=== PATIENT | female | born 1960 | race American Indian/Alaskan Native ===

== ENCOUNTER 2016-05-22 12:55 | Outpatient (CLI) | payer OTHER ==
--- NOTE | 2016-05-22 15:44 | Mammography Report ---
BILATERAL DIGITAL DIAGNOSTIC MAMMOGRAM: 05/22/16 12:55:00 CLINICAL: For clip placement immediately status post bilateral ultrasound-guided needle breast biopsy. Breast cancer survivor status post bilateral mastectomy with TRAM reconstruction. Bilateral palpable tender masses. COMPARISON:01/05/16 FINDINGS: A biopsy clip is identified within a heavily calcified circumscribed bilobed 4 cm right upper outer breast mass. The mass is not significantly changed compared to the last mammogram. A biopsy clip is identified within a heavily calcified 3 cm left upper outer breast mass that is not significantly changed compared to the last mammogram. The masses have benign mammographic features typical of benign fat necrosis. IMPRESSION: Concordant clip placement status post bilateral needle breast biopsy. BI-RADS CATEGORY: 4A--Mildly Suspicious Pathology pending.
--- NOTE | 2016-05-22 15:46 | Ultrasound Report ---
ULTRASOUND GUIDED NEEDLE CORE BIOPSY LEFT BREAST WITH CLIP PLACEMENT: 05/22/16 CLINICAL: Breast cancer survivor status post bilateral mastectomy with TRAM reconstruction. Bilateral tender enlarging palpable breast masses. COMPARISON :01/05/16 mammogram. FINDINGS: The procedure was explained to the patient and informed consent was obtained. Ultrasound demonstrated a heavily calcified shadowing hypoechoic mass at 3 o'clock 7 cm from the nipple.. I marked the breast with a felt tip marker and a time out was called. The skin was prepped with Betadine and anesthetized with 1% lidocaine. Needle core biopsy was performed through a tiny dermatotomy using ultrasound guidance, 2% lidocaine with epinephrine for deep anesthesia and a 14-gauge Achieve biopsy device. Imaging demonstrated satisfactory sampling. Four cores were obtained and placed in formalin. A clip was deployed within the mass. The patient tolerated the procedure well and there were no apparent complications. Hemostasis was achieved with gentle pressure and a sterile dressing was applied. A two view mammogram demonstrated satisfactory placement of the clip. She left the department in good condition and was given instructions for wound care and followup. IMPRESSION: Uncomplicated ultrasound guided needle core biopsy with clip placement left breast.
--- NOTE | 2016-05-22 15:49 | Ultrasound Report ---
ULTRASOUND GUIDED NEEDLE CORE BIOPSY RIGHT BREAST WITH CLIP PLACEMENT: 05/22/16 CLINICAL: Breast cancer survivor status post bilateral mastectomy with TRAM reconstruction. Bilateral enlarging tender palpable breast masses. COMPARISON :01/04/06 the mammogram. FINDINGS: The procedure was explained to the patient and informed consent was obtained. Ultrasound demonstrated a solid hypoechoic shadowing mass at 9 o'clock 8 cm from the nipple. It correlates with a heavily calcified mammographic mass that was seen previously. I marked the breast with a felt tip marker and a time out was called. The skin was prepped with Betadine and anesthetized with 1% lidocaine. Needle core biopsy was performed through a tiny dermatotomy using ultrasound guidance, 2% lidocaine with epinephrine for deep anesthesia and a 14-gauge Achieve biopsy device. Imaging demonstrated satisfactory sampling. 3 cores were obtained and placed in formalin. A clip was deployed within the mass. The patient tolerated the procedure well and there were no apparent complications. Hemostasis was achieved with gentle pressure and a sterile dressing was applied. A two view mammogram demonstrated satisfactory placement of the clip. She left the department in good condition and was given instructions for wound care and followup. IMPRESSION: Uncomplicated ultrasound guided needle core biopsy with clip placement right breast.
== END 2016-05-22 12:56 | disposition home or self-care (01) ==
LOC: SPVWC 12:55
PROVIDERS: ATTEND Internal Medicine Hematology & Oncology
DX: N63 Unspecified lump in breast (principal); Z90.11 Acquired absence of right breast and nipple; Z90.12 Acquired absence of left breast and nipple; Z85.3 Personal history of malignant neoplasm of breast
CPT/HCPCS: 19083; 88305; A4648; G0204; 77066

== ENCOUNTER 2016-05-30 07:08 | Outpatient (CLI) | payer OTHER ==
--- NOTE | 2016-05-30 14:29 | PET Report ---
PET/CT:05/30/16 07:08:00 CLINICAL: History of right renal cancer and bilateral breast cancer. RADIOPHARMACEUTICAL: 14.6mCi F18-FDG. COMPARISON: 12/05/09 PET/CT TECHNIQUE- Following intravenous injection of F-18 FDG and an approximately 60 minute uptake period, CT and PET images from the mid skull to the upper thighs were acquired with the patient in the fasted state. No contrast was administered. The CT protocol used for this PET CT study is designed for attenuation correction and anatomic localization of PET abnormalities. This armature straightener CT is not desired to produce and cannot replace, upbrc-nr-eie-art diagnostic CT scans with specific imaging protocols for different body parts and indications. Plasma glucose at the time of this test: 113g/dl. The standardized uptake values (SUV) are normalized to patient body weight and indicate the highest activity concentration (SUV max) in a given disease site. FINDINGS: Brain--Physiologic FDG uptake in the visualized regions of the brain. Neck--Benign FDG uptake in brown fat of the neck and supraclavicular regions. An FDG avid right level II jugular chain lymph node measures less than 1 cm in size with SUV 3.8. Chest--Physiologic FDG uptake in mediastinal blood pool and myocardium. Lungs--No abnormal uptake. No pulmonary nodule or mass. Pleura/pericardium--No abnormal uptake. Thoracic nodes--No abnormal uptake. Hepatobiliary--No abnormal uptake. Liver background SUV mean, as a reference for comparing FDG studies, is 2.9 compared to 2.9 on the last exam. No liver mass. Spleen--No abnormal uptake. Pancreas--No abnormal uptake. Adrenal Glands--No abnormal uptake. Kidneys/Ureters/Bladder--No abnormal uptake. Status post right nephrectomy. Abdominopelvic Nodes--No abnormal uptake. Bowel/Peritoneum/Mesentery--No abnormal uptake. Pelvic organs--No abnormal uptake. Bones/Soft Tissues--No abnormal uptake. No bone lesions. Other findings: Status post bilateral mastectomy with TRAM reconstruction. Recently biopsied masses of benign fat necrosis in each breast demonstrate mild FDG uptake with SUV of 3.0 on the right and 3.2 on the left. IMPRESSION- No evidence of disease recurrence or metastasis. A probably benign right jugular chain lymph node. Bilateral benign fat necrosis of the reconstructed breasts.
== END 2016-05-30 07:09 | disposition home or self-care (01) ==
LOC: PET 07:08
PROVIDERS: ATTEND Internal Medicine Hematology & Oncology
DX: C64.1 Malignant neoplasm of right kidney, except renal pelvis (principal); C50.411 Malignant neoplasm of upper-outer quadrant of right female breast; C50.912 Malignant neoplasm of unspecified site of left female breast; D64.9 Anemia, unspecified; N64.1 Fat necrosis of breast; Z90.5 Acquired absence of kidney; Z90.13 Acquired absence of bilateral breasts and nipples
CPT/HCPCS: 78815; 82962; A9552

== ENCOUNTER 2018-09-04 11:03 | Emergency (ER) | payer OTHER ==
[2018-09-04 11:17] VITALS: BP 175/125
--- NOTE | 2018-09-04 12:24 | XRay Report ---
PORTABLE CHEST INDICATION: Chest pain. COMPARISON: 01/02/2014 FINDINGS: Portable, frontal chest radiograph demonstrates grossly stable cardiomediastinal silhouette, clear lungs, mild aortic knob calcifications, few bilateral surgical clips and few bony degenerative changes. CONCLUSION: No acute chest process or significant interval change, as described. Thank you for the opportunity to participate in this patient's care.
[2018-09-04 12:31] LABS: Hematocrit 39.7 % (30.3-42.9); Hemoglobin 12.8 gm/dl (10.1-14.3); Mean Corpuscular HGB Conc 32 % (30-34); Mean Corpuscular Volume 94 fl (79-97); Platelet Count 304 K/mm3 (140-440); Red Blood Count 4.22 M/mm3 (3.65-5.03); Red Cell Distribution Width 14.7 % (13.2-15.2)
[2018-09-04 13:34] LABS: Total Cells Counted 100
[2018-09-04 13:35] LABS: Basophils % (Manual) 0 % (0.0-1.8); Eosinophils % (Manual) 0 % (0.0-4.3); Platelet Estimate Consistent w Auto; RBC Morphology Normal
[2018-09-04] MEDS ORDERED: CATAPRES PO ONE (15:19)
--- NOTE | 2018-09-04 15:19 | Emergency Department Report ---
HPI - General Chief Complaint: Medical Clearance Time Seen by Provider: 09/04/18 11:41 - HPI HPI: 58-year-old -[place] female with history of CHF, history of MS, presents to ED with headache, chest pain, for the past 2 weeks. Patient hasn't taken any medications for her symptoms. She has not taking any of her maintenance medication due to leg of insurance. She has not seen a medical doctor in the past 3 months. Denies any fever, chills or night sweats. Denies any focal weakness. Her chest pain is mid chest, 2 out of 10, sharp without radiation. ED Past Medical Hx - Past Medical History Previous Medical History?: Yes Hx Hypertension: Yes Hx CVA: Yes Hx Congestive Heart Failure: Yes Additional medical history: Bilateral Breast CA, Right Kidney CA, left lung collapsed, broken ribs. MS - Surgical History Past Surgical History?: Yes Additional Surgical History: Bilateral mastectomy with reconstruction, bilateral lymph nodes removed, right kidney removed, cyst to throat removed as a child - Social History Smoking Status: Never Smoker Substance Use Type: None - Medications Home Medications: Home Medications Medication Instructions Recorded Confirmed Last Taken Type Atorvastatin Calcium [Lipitor] 20 mg PO DAILY 01/02/14 01/02/14 Unknown History Furosemide [Lasix] 40 mg PO DAILY 01/02/14 01/02/14 Unknown History HYDROcodone/APAP 10-325 [[place] 1 each PO Q4H PRN #20 tablet 01/03/14 Unknown Rx 10-325 mg TAB] traMADol [Ultram 50 MG tab] 50 mg PO Q6HR PRN #20 tablet 02/27/15 Unknown Rx Aspirin [Aspirin BABY CHEW TAB] 81 mg PO DAILY #30 tab.chew 09/04/18 Unknown Rx Carvedilol [Coreg] 12.5 mg PO DAILY #30 tablet 09/04/18 Unknown Rx Furosemide [Lasix] 40 mg PO DAILY #30 tablet 09/04/18 Unknown Rx Simvastatin (Nf) [Zocor TAB] 20 mg PO DAILY #30 tablet 09/04/18 Unknown Rx hydrALAZINE [Apresoline TAB] 25 mg PO BID #60 tablet 09/04/18 Unknown Rx ED Review of Systems ROS: Stated complaint: MEDICAL CLEARANCE Other details as noted in HPI Comment: All other systems reviewed and negative ENT: denies: ear pain Respiratory: denies: cough, orthopnea Physical Exam - Physical Exam Vital Signs: Vital Signs 09/04/18 11:14 Temperature 97.5 F L Pulse Rate 88 Respiratory 18 Rate Blood Pressure 175/125 O2 Sat by Pulse 100 Oximetry Physical Exam: Physical Exam: - General Limitations: No Limitations General appearance: alert, in no apparent distress. - Head Head exam: Present: atraumatic, normocephalic - Eye Eye exam: Present: normal appearance - ENT ENT exam: Present: mucous membranes moist - Neck Neck exam: Present: normal inspection - Respiratory Respiratory exam: Present: normal lung sounds bilaterally. Absent: respiratory distress - Cardiovascular Cardiovascular Exam: Present: normal rhythm. Absent: systolic murmur, diastolic murmur, rubs, gallop - GI/Abdominal GI/Abdominal exam: Present: soft, normal bowel sounds - Extremities Exam Extremities exam: Present: normal inspection - Back Exam Back exam: Present: normal inspection - Neurological Exam Neurological exam: Present: alert, oriented X3 - Psychiatric Psychiatric exam: normal affect and mood - Skin Skin exam: Present: warm, dry, intact, normal color. Absent: rash ED Course Vital Signs 09/04/18 11:14 Temperature 97.5 F L Pulse Rate 88 Respiratory 18 Rate Blood Pressure 175/125 O2 Sat by Pulse 100 Oximetry ED Medical Decision Making - Lab Data Result diagrams: 09/04/18 12:10 Critical care attestation.: If time is entered above; I have spent that time in minutes in the direct care of this critically ill patient, excluding procedure time. ED Disposition Clinical Impression: Multiple sclerosis CHF (congestive heart failure) Qualifiers: Heart failure type: systolic Heart failure chronicity: chronic Qualified Code(s): I50.22 - Chronic systolic (congestive) heart failure Disposition: DC-01 TO HOME OR SELFCARE Is pt being admited?: No Does the pt Need Aspirin: No Condition: Stable Prescriptions: hydrALAZINE [Apresoline TAB] 25 mg PO BID #60 tablet Aspirin [Aspirin BABY CHEW TAB] 81 mg PO DAILY #30 tab.chew Carvedilol [Coreg] 12.5 mg PO DAILY #30 tablet Furosemide [Lasix] 40 mg PO DAILY #30 tablet Simvastatin (Nf) [Zocor TAB] 20 mg PO DAILY #30 tablet Referrals: PRIMARY CARE, [Primary Care Provider] - 3-5 Days
--- NOTE | 2018-09-04 15:26 | Cat Scan Report ---
PROCEDURE: CT HEAD/BRAIN WO CON TECHNIQUE: Spiral CT imaging of the brain was obtained without the use of IV contrast. HISTORY: h/o ms, weakness COMPARISONS: None FINDINGS: There is no evidence of intracranial hemorrhage. No parenchymal hemorrhage, mass lesions or mass effe ct are seen. The ventricles are normal size and are midline. No abnormal extra-axial fluid collection s or masses are identified. There are subtle areas of decreased density seen in the periventricular white matter and more promine nt decreased density seen superior to the posterior horn of the left lateral ventricle also within th e white matter. Given the patient's history of multiple sclerosis these likely represent demyelinatin g plaques. Visualized paranasal sinuses are clear. Mastoid air cells are clear. No evidence of skull fracture. IMPRESSION: No acute intracranial abnormalities are identified. White matter changes are present likely related to the patient's multiple sclerosis and demyelinating plaques. If clinically indicated a follow-up MRI of the brain could be obtained for further characte rization. No intracranial hemorrhage or mass effect are seen.. This document is electronically signed by Bharathi Díaz MD., Sep 04 2018 03:23:47 PM ET
== END 2018-09-04 15:40 | disposition home or self-care (01) ==
LOC: ED 11:03
DX: I11.0 Hypertensive heart disease with heart failure (principal); I50.9 Heart failure, unspecified; G35 Multiple sclerosis; Z86.73 Personal history of transient ischemic attack (TIA), and cerebral infarction without residual deficits; Z79.899 Other long term (current) drug therapy
CPT/HCPCS: 36415; 70450; 71045; 83880; 84484; 85007; 85025; 93005; 93010

== ENCOUNTER 2019-04-04 04:47 | Inpatient (IN) | payer BC, OTHER ==
[2019-04-04] MEDS ORDERED: ASPIRIN 325 MG TAB PO ONE (04:58)
[2019-04-04] MEDS ORDERED: NITROGLYCERIN 2% OINT 1 GM TP ONE (04:58)
[2019-04-04] MEDS ORDERED: FUROSEMIDE 40 MG/4 ML INJ IV ONE (04:59)
--- NOTE | 2019-04-04 05:29 | Emergency Department Report ---
ED Shortness of Breath HPI - General Chief Complaint: Chest Pain Stated Complaint: IOANA Time Seen by Provider: 04/04/19 04:57 Source: patient, EMS Mode of arrival: Ambulatory Limitations: No Limitations - History of Present Illness Initial Comments: Patient is a 58-year-old [place] female with a past medical history of congestive heart failure hypertension has been noncompliant with her medication for several months. Patient is having gradually worsening shortness of breath especially with exertion and with lying flat witches got to the point where the patient states she could not sleep tonight. Patient was very short of breath and was having some chest discomfort. Patient states she has been having occasional chest pain with exertion. She denies fevers chills nausea vomiting diarrhea, cold or congestion. - Related Data Home Medications Medication Instructions Recorded Confirmed Last Taken Atorvastatin Calcium [Lipitor] 20 mg PO DAILY 01/02/14 01/02/14 Unknown Furosemide [Lasix] 40 mg PO DAILY 01/02/14 01/02/14 Unknown Previous Rx's Medication Instructions Recorded Last Taken Type HYDROcodone/APAP 10-325 [[place] 1 each PO Q4H PRN #20 tablet 01/03/14 Unknown Rx 10-325 mg TAB] traMADoL [Ultram 50 MG tab] 50 mg PO Q6HR PRN #20 tablet 02/27/15 Unknown Rx Aspirin [Aspirin BABY CHEW TAB] 81 mg PO DAILY #30 tab.chew 09/04/18 Unknown Rx Furosemide [Lasix] 40 mg PO DAILY #30 tablet 09/04/18 Unknown Rx Simvastatin (Nf) [Zocor TAB] 20 mg PO DAILY #30 tablet 09/04/18 Unknown Rx carvediloL [Coreg] 12.5 mg PO DAILY #30 tablet 09/04/18 Unknown Rx hydrALAZINE [Apresoline TAB] 25 mg PO BID #60 tablet 09/04/18 Unknown Rx Allergies Allergy/AdvReac Type Severity Reaction Status Date / Time No Known Allergies Allergy Verified 01/02/14 21:11 ED Review of Systems ROS: Stated complaint: IOANA Other details as noted in HPI Comment: All other systems reviewed and negative ED Past Medical Hx - Past Medical History Previous Medical History?: Yes Hx Hypertension: Yes Hx CVA: Yes Hx Congestive Heart Failure: Yes Additional medical history: Bilateral Breast CA, Right Kidney CA, left lung collapsed, broken ribs. MS - Surgical History Past Surgical History?: Yes Additional Surgical History: Bilateral mastectomy with reconstruction, bilateral lymph nodes removed, right kidney removed, cyst to throat removed as a child - Social History Smoking Status: Light Tobacco Smoker Substance Use Type: None - Medications Home Medications: Home Medications Medication Instructions Recorded Confirmed Last Taken Type Atorvastatin Calcium [Lipitor] 20 mg PO DAILY 01/02/14 01/02/14 Unknown History Furosemide [Lasix] 40 mg PO DAILY 01/02/14 01/02/14 Unknown History HYDROcodone/APAP 10-325 [[place] 1 each PO Q4H PRN #20 tablet 01/03/14 Unknown Rx 10-325 mg TAB] traMADoL [Ultram 50 MG tab] 50 mg PO Q6HR PRN #20 tablet 02/27/15 Unknown Rx Aspirin [Aspirin BABY CHEW TAB] 81 mg PO DAILY #30 tab.chew 09/04/18 Unknown Rx Furosemide [Lasix] 40 mg PO DAILY #30 tablet 09/04/18 Unknown Rx Simvastatin (Nf) [Zocor TAB] 20 mg PO DAILY #30 tablet 09/04/18 Unknown Rx carvediloL [Coreg] 12.5 mg PO DAILY #30 tablet 09/04/18 Unknown Rx hydrALAZINE [Apresoline TAB] 25 mg PO BID #60 tablet 09/04/18 Unknown Rx ED Physical Exam - General Limitations: No Limitations General appearance: alert, in no apparent distress - Head Head exam: Present: atraumatic, normocephalic - Eye Eye exam: Present: normal appearance, PERRL, EOMI - ENT ENT exam: Present: mucous membranes moist - Neck Neck exam: Present: normal inspection - Respiratory Respiratory exam: Present: respiratory distress, rales. Absent: normal lung sounds bilaterally, wheezes, rhonchi, stridor - Cardiovascular Cardiovascular Exam: Present: regular rate, normal rhythm, normal heart sounds. Absent: systolic murmur, diastolic murmur, rubs, gallop - GI/Abdominal GI/Abdominal exam: Present: soft, normal bowel sounds. Absent: distended, tenderness, guarding, rebound - Extremities Exam Extremities exam: Present: normal inspection - Back Exam Back exam: Present: normal inspection - Neurological Exam Neurological exam: Present: alert, oriented X3 - Psychiatric Psychiatric exam: Present: normal affect, normal mood - Skin Skin exam: Present: warm, dry, intact, normal color. Absent: rash ED Course Vital Signs 04/04/19 04/04/19 04/04/19 04:54 05:04 05:14 Temperature 97.5 F L Pulse Rate 89 89 Respiratory 27 H 26 H Rate Blood Pressure 160/111 158/117 O2 Sat by Pulse 97 97 Oximetry ED Medical Decision Making - Lab Data Result diagrams: 04/04/19 05:11 04/04/19 05:11 Lab Results 04/04/19 04/04/19 04/04/19 Range/Units 05:11 05:11 05:11 WBC 6.3 (4.5-11.0) K/mm3 RBC 4.10 (3.65-5.03) M/mm3 Hgb 12.4 (10.1-14.3) gm/dl Hct 38.5 (30.3-42.9) % MCV 94 (79-97) fl MCH 30 (28-32) pg MCHC 32 (30-34) % RDW 14.3 (13.2-15.2) % Plt Count 298 (140-440) K/mm3 Lymph % (Auto) 27.6 (13.4-35.0) % Kay % (Auto) 6.9 (0.0-7.3) % Eos % (Auto) 0.9 (0.0-4.3) % Baso % (Auto) 1.4 (0.0-1.8) % Lymph # 1.7 (1.2-5.4) K/mm3 Kay # 0.4 (0.0-0.8) K/mm3 Eos # 0.1 (0.0-0.4) K/mm3 Baso # 0.1 (0.0-0.1) K/mm3 Seg Neutrophils % 63.2 (40.0-70.0) % Seg Neutrophils # 4.0 (1.8-7.7) K/mm3 PT 12.7 (12.2-14.9) Sec. INR 0.96 (0.87-1.13) APTT 27.7 (24.2-36.6) Sec. Sodium 143 (137-145) mmol/L Potassium 3.9 (3.6-5.0) mmol/L Chloride 105.7 (98-107) mmol/L Carbon Dioxide 23 (22-30) mmol/L Anion Gap 18 mmol/L BUN 13 (7-17) mg/dL Creatinine 0.9 (0.7-1.2) mg/dL Estimated GFR > 60 ml/min BUN/Creatinine Ratio 14 % Glucose 103 H (65-100) mg/dL Calcium 9.1 (8.4-10.2) mg/dL Troponin T 0.136 H* (0.00-0.029) ng/mL NT-Pro-B Natriuret Pep 15009 H (0-900) pg/mL - EKG Data -: EKG Interpreted by Me EKG shows normal: sinus rhythm, axis, intervals, QRS complexes, ST-T waves Rate: normal - EKG Data Interpretation: [facility] - Radiology Data Radiology results: image reviewed (chest x-ray shows mild cardiomegaly with pulmonary vascular congestion) - Medical Decision Making Patient is a 58-year-old female who has been noncompliant with her medications for her congestive heart failure and hypertension. Patient presenting with increased shortness of breath with exertion as well as ort hopnea. Patient also having some exertional chest discomfort as well. Patient's BNP and troponin are both elevated. Patient started on heparin drip given Lasix. Chest discomfort is improved after nitroglycerin. Patient be admitted to the hospitalist service with cardiology consult. Critical Care Time: Yes (30) Critical care attestation.: If time is entered above; I have spent that time in minutes in the direct care of this critically ill patient, excluding procedure time. ED Disposition Clinical Impression: NSTEMI (non-ST elevated myocardial infarction), Hypertensive emergency Acute congestive heart failure Qualifiers: Heart failure type: unspecified Qualified Code(s): I50.9 - Heart failure, unspecified Disposition: OP ADMIT IP TO THIS HOSP Is pt being admited?: Yes Does the pt Need Aspirin: No Condition: Stable Instructions: Hypertension (ED) Time of Disposition: 06:00
[2019-04-04 05:32] LABS: Basophils # (Auto) 0.1 K/mm3 (0.0-0.1); Basophils % (Auto) 1.4 % (0.0-1.8); Eosinophils # (Auto) 0.1 K/mm3 (0.0-0.4); Eosinophils % (Auto) 0.9 % (0.0-4.3); Hematocrit 38.5 % (30.3-42.9); Hemoglobin 12.4 gm/dl (10.1-14.3); Lymphocytes # (Auto) 1.7 K/mm3 (1.2-5.4); Lymphocytes % (Auto) 27.6 % (13.4-35.0); Mean Corpuscular HGB Conc 32 % (30-34); Mean Corpuscular Volume 94 fl (79-97); Monocytes # (Auto) 0.4 K/mm3 (0.0-0.8); Monocytes % (Auto) 6.9 % (0.0-7.3); Platelet Count 298 K/mm3 (140-440); Red Cell Distribution Width 14.3 % (13.2-15.2)
[2019-04-04 05:42] LABS: INR 0.96 (0.87-1.13)
[2019-04-04 05:43] LABS: Partial Thromboplastin Time 27.7 Sec. (24.2-36.6)
[2019-04-04 05:51] LABS: BUN/Creatinine Ratio 14; Blood Urea Nitrogen 13 mg/dL (7-17); Calcium 9.1 mg/dL (8.4-10.2); Hemolysis Index 17
[2019-04-04] MEDS ORDERED: HEPARIN 10,000 UNITS/10 ML VIAL IV ONE (05:57)
[2019-04-04] MEDS ORDERED: HEPARIN/ 0.45% NACL DRIP 25,000 UNIT/500 ML BAG IV SCH (06:00)
--- NOTE | 2019-04-04 06:02 | XRay Report ---
CHEST 1 VIEW INDICATION / CLINICAL INFORMATION: dyspnea. COMPARISON: None available. FINDINGS: SUPPORT DEVICES: None. HEART / MEDIASTINUM: No significant abnormality. LUNGS / PLEURA: Patchy airspace density within the right lower lung. Signer Name: Matteo Rao MD Signed: 04/04/2019 5:58 AM Workstation Name: [id number]
[2019-04-04 06:08] LABS: Chol/HDL Ratio 2.42 %; HDL Cholesterol 68 mg/dL (40-59); LDL Cholesterol,Direct 95 mg/dL (50-130)
--- NOTE | 2019-04-04 08:01 | History and Physical Report ---
History of Present Illness Date of examination: 04/04/19 Date of admission: 04/04/19 06:59 Chief complaint: Increasing shortness of breath for 2-3 days History of present illness: 58-year-old -[place] female with multiple medical problems including congestive heart failure, hypertension, breast cancer and hyperlipidemia comes in for increasing shortness of breath for last 2-3 days. Unable to lie flat. Getting short of breath on minimal exertion. Patient has class IV NYHA symptoms. Patient has not been taking her medications on a regular basis. Hist ory of noncompliance present. Also some chest discomfort on exertion. No radiation. Past Medical History Previous Medical History?: Yes Hypertension: Yes CVA: Yes Congestive Heart Failure: Yes Additional medical history: Bilateral Breast CA, Right Kidney CA, left lung collapsed, broken ribs. MS Surgical History Past Surgical History?: Yes Additional Surgical History: Bilateral mastectomy with reconstruction, bilateral lymph nodes removed, right kidney removed, cyst to throat removed as a child Social History Smoking Status: Light Tobacco Smoker Substance Use Type: None Family history Htn - Medications Home Medications: Home Medications Medication Instructions Recorded Confirmed Last Taken Type Atorvastatin Calcium [Lipitor] 20 mg PO DAILY 01/02/14 01/02/14 Unknown History Furosemide [Lasix] 40 mg PO DAILY 01/02/14 01/02/14 Unknown History HYDROcodone/APAP 10-325 [[place]cedes 1 each PO Q4H PRN #20 tablet 01/03/14 Unknown Rx 10-325 mg TAB] traMADoL [Ultram 50 MG tab] 50 mg PO Q6HR PRN #20 tablet 02/27/15 Unknown Rx Aspirin [Aspirin BABY CHEW TAB] 81 mg PO DAILY #30 tab.chew 09/04/18 Unknown Rx Furosemide [Lasix] 40 mg PO DAILY #30 tablet 09/04/18 Unknown Rx Simvastatin (Nf) [Zocor TAB] 20 mg PO DAILY #30 tablet 09/04/18 Unknown Rx carvediloL [Coreg] 12.5 mg PO DAILY #30 tablet 09/04/18 Unknown Rx hydrALAZINE [Apresoline TAB] 25 mg PO BID #60 tablet 09/04/18 Unknown Rx Review of Systems ROS: Stated complaint: IOANA Other details as noted in HPI Comment: All other systems reviewed and negative Medications and Allergies Allergies Allergy/AdvReac Type Severity Reaction Status Date / Time No Known Allergies Allergy Verified 01/02/14 21:11 Home Medications Medication Instructions Recorded Confirmed Last Taken Type Atorvastatin Calcium [Lipitor] 20 mg PO DAILY 01/02/14 01/02/14 Unknown History Furosemide [Lasix] 40 mg PO DAILY 01/02/14 01/02/14 Unknown History HYDROcodone/APAP 10-325 [[place]cedes 1 each PO Q4H PRN #20 tablet 01/03/14 Unknown Rx 10-325 mg TAB] traMADoL [Ultram 50 MG tab] 50 mg PO Q6HR PRN #20 tablet 02/27/15 Unknown Rx Aspirin [Aspirin BABY CHEW TAB] 81 mg PO DAILY #30 tab.chew 09/04/18 Unknown Rx Furosemide [Lasix] 40 mg PO DAILY #30 tablet 09/04/18 Unknown Rx Simvastatin (Nf) [Zocor TAB] 20 mg PO DAILY #30 tablet 09/04/18 Unknown Rx carvediloL [Coreg] 12.5 mg PO DAILY #30 tablet 09/04/18 Unknown Rx hydrALAZINE [Apresoline TAB] 25 mg PO BID #60 tablet 09/04/18 Unknown Rx Active Meds: Active Medications Heparin Sodium/Sodium Chloride (Heparin/ 0.45% Nacl-25,000 Unit/500 Ml) 25,000 unit in 500 mls @ 20 mls/hr IV TITRATE ANGELIQUE; Protocol Last Admin: 04/04/19 06:44 Dose: 1,000 units/hr, 20 mls/hr Documented by: Exam - Constitutional Vitals: Temp Pulse Resp BP Pulse Ox 97.5 F L 97 H 32 H 179/132 99 04/04/19 04:54 04/04/19 06:45 04/04/19 06:45 04/04/19 06:45 04/04/19 06:45 General appearance: Present: mild distress, well-nourished - EENT Eyes: Present: PERRL ENT: hearing intact, clear oral mucosa - Neck Neck: Present: supple, normal ROM - Respiratory Respiratory effort: normal Respiratory: bilateral: CTA - Cardiovascular Heart rate: 90 Rhythm: regular Heart Sounds: Present: S1 & S2. Absent: rub, click - Extremities Extremities: no ischemia, pulses symmetrical, No edema Peripheral Pulses: within normal limits - Abdominal General gastrointestinal: Present: soft, non-tender, non-distended, normal bowel sounds Female genitourinary: Present: normal - Integumentary Integumentary: Present: clear, warm, dry - Musculoskeletal Musculoskeletal: gait normal, strength equal bilaterally - Psychiatric Psychiatric: appropriate mood/affect, intact judgment & insight - Neurologic Neurologic: CNII-XII intact, moves all extremities - Allied Health Allied health notes reviewed: nursing, case management Results - Labs CBC & Chem 7: 04/04/19 05:11 04/04/19 05:11 Labs: Laboratory Last Values WBC 6.3 K/mm3 (4.5-11.0) 04/04/19 05:11 RBC 4.10 M/mm3 (3.65-5.03) 04/04/19 05:11 Hgb 12.4 gm/dl (10.1-14.3) 04/04/19 05:11 Hct 38.5 % (30.3-42.9) 04/04/19 05:11 MCV 94 fl (79-97) 04/04/19 05:11 MCH 30 pg (28-32) 04/04/19 05:11 MCHC 32 % (30-34) 04/04/19 05:11 RDW 14.3 % (13.2-15.2) 04/04/19 05:11 Plt Count 298 K/mm3 (140-440) 04/04/19 05:11 Lymph % (Auto) 27.6 % (13.4-35.0) 04/04/19 05:11 Mcleod % (Auto) 6.9 % (0.0-7.3) 04/04/19 05:11 Eos % (Auto) 0.9 % (0.0-4.3) 04/04/19 05:11 Baso % (Auto) 1.4 % (0.0-1.8) 04/04/19 05:11 Lymph # 1.7 K/mm3 (1.2-5.4) 04/04/19 05:11 Mcleod # 0.4 K/mm3 (0.0-0.8) 04/04/19 05:11 Eos # 0.1 K/mm3 (0.0-0.4) 04/04/19 05:11 Baso # 0.1 K/mm3 (0.0-0.1) 04/04/19 05:11 Seg Neutrophils % 63.2 % (40.0-70.0) 04/04/19 05:11 Seg Neutrophils # 4.0 K/mm3 (1.8-7.7) 04/04/19 05:11 PT 12.7 Sec. (12.2-14.9) 04/04/19 05:11 INR 0.96 (0.87-1.13) 04/04/19 05:11 APTT 27.7 Sec. (24.2-36.6) 04/04/19 05:11 Sodium 143 mmol/L (137-145) 04/04/19 05:11 Potassium 3.9 mmol/L (3.6-5.0) 04/04/19 05:11 Chloride 105.7 mmol/L (98-107) 04/04/19 05:11 Carbon Dioxide 23 mmol/L (22-30) 04/04/19 05:11 Anion Gap 18 mmol/L 04/04/19 05:11 BUN 13 mg/dL (7-17) 04/04/19 05:11 Creatinine 0.9 mg/dL (0.7-1.2) 04/04/19 05:11 Estimated GFR > 60 ml/min 04/04/19 05:11 BUN/Creatinine Ratio 14 % 04/04/19 05:11 Glucose 103 mg/dL (65-100) H 04/04/19 05:11 Calcium 9.1 mg/dL (8.4-10.2) 04/04/19 05:11 Troponin T 0.136 ng/mL (0.00-0.029) H* 04/04/19 05:11 NT-Pro-B Natriuret Pep 14024 pg/mL (0-900) H 04/04/19 05:11 Triglycerides 92 mg/dL (2-149) 04/04/19 05:11 Cholesterol 165 mg/dL (50-199) 04/04/19 05:11 LDL Cholesterol Direct 95 mg/dL (50-130) 04/04/19 05:11 HDL Cholesterol 68 mg/dL (40-59) H 04/04/19 05:11 Cholesterol/HDL Ratio 2.42 % 04/04/19 05:11 Short CBC 04/04/19 Range/Units 05:11 WBC 6.3 (4.5-11.0) K/mm3 Hgb 12.4 (10.1-14.3) gm/dl Hct 38.5 (30.3-42.9) % Plt Count 298 (140-440) K/mm3 BMP 04/04/19 05:11 Sodium 143 Potassium 3.9 Chloride 105.7 Carbon Dioxide 23 BUN 13 Creatinine 0.9 Glucose 103 H Calcium 9.1 Cardiac Enzymes 04/04/19 Range/Units 05:11 Troponin T 0.136 H* (0.00-0.029) ng/mL - Imaging and Cardiology EKG: report reviewed (sinus rhythm heart rate of 91/m LVH) Assessment and Plan Advance Directives: Yes (full code) VTE prophylaxis?: Chemical Plan of care discussed with patient/family: Yes - Patient Problems (1) NSTEMI (non-ST elevated myocardial infarction) Current Visit: Yes Status: Acute Plan to address problem: Troponin is elevated Cardiology consult requested Patient started on IV heparin (2) Acute exacerbation of CHF (congestive heart failure) Current Visit: Yes Status: Acute Qualifiers: Heart failure type: combined systolic and diastolic Qualified Code(s): I50.43 - Acute on chronic combined systolic (congestive) and diastolic (congestive) heart failure Plan to address problem: Echocardiogram ordered IV Lasix every 12 Daily intake output Daily weights Cardiology consult requested (3) Hypertensive emergency Current Visit: Yes Status: Acute Plan to address problem: Valsartan Coreg and hydralazine initiated IV hydralazine when necessary IV hydralazine given in the emergency room (4) Hyperlipidemia Current Visit: Yes Status: Chronic Plan to address problem: Continue statins (5) History of breast cancer Current Visit: Yes Status: Chronic (6) Hypertension Current Visit: Yes Status: Acute Plan to address problem: Patient initiated on valsartan hydralazine and Coreg. (7) DVT prophylaxis Current Visit: Yes Status: Acute Plan to address problem: Patient is on heparin drip and GI prophylaxis
[2019-04-04] MEDS ORDERED: HYDROcodone/ACETAMINOPHEN 10-325MG TAB PO PRN (08:08)
[2019-04-04] MEDS ORDERED: hydrALAZINE 20 MG/1 ML INJ IV ONE (08:25)
[2019-04-04] MEDS ORDERED: hydrALAZINE 20 MG/1 ML INJ ONE (08:38)
[2019-04-04 08:48] LABS: Hematocrit 41.3 % (30.3-42.9); Hemoglobin 13.4 gm/dl (10.1-14.3)
[2019-04-04 09:06] LABS: INR 1.01 (0.87-1.13)
[2019-04-04 09:14] LABS: Partial Thromboplastin Time 145.3 Sec. (24.2-36.6)
[2019-04-04] MEDS: VALSARTAN 160MG TAB PO SCH (12:58)
[2019-04-04] MEDS: hydrALAZINE 25 MG TAB PO SCH ×2 (13:02→20:30)
[2019-04-04] MEDS: carvediloL 12.5 MG TAB PO SCH (13:02)
--- NOTE | 2019-04-04 15:44 | Event Note ---
Date: 04/04/19 Patient seen and examined, continue current management, awaiting cardiology eval.
[2019-04-04] MEDS: HEPARIN/ 0.45% NACL DRIP 25,000 UNIT/500 ML BAG IV SCH (22:25)
[2019-04-05] MEDS: hydrALAZINE 25 MG TAB PO SCH ×3 (00:55→17:00)
[2019-04-05] MEDS: traMADol 50 MG TAB PO PRN (07:41)
[2019-04-05] MEDS: ASPIRIN 81 MG TAB CHEW PO SCH (09:54)
[2019-04-05] MEDS: VALSARTAN 160MG TAB PO SCH (09:54)
[2019-04-05] MEDS: carvediloL 12.5 MG TAB PO SCH (09:54)
[2019-04-05] MEDS: HEPARIN/ 0.45% NACL DRIP 25,000 UNIT/500 ML BAG IV SCH (10:55)
--- NOTE | 2019-04-05 15:01 | Consultation ---
History of Present Illness Consult date: 04/05/19 Consult reason: congestive heart failure History of present illness: 58-year old woman with a long standing history of hypertension, dilated card iomyopathy. Patient is noncompliant with medications and has been lost to outpatient follow ups due to lack of insurance. She presented with shortness of breath worse with minimal exertion and when lying flat. She denies chest pain. A chest x-ray reveals cardiomegaly with interstitial edema. Further evaluation with an echocardiogram shows a severe dilated left ventricular size with a decreased left ventricular systolic function, ejection fraction 15-20%. A cardiac consultation has been requested for CHF management. Medications and Allergies Allergies Allergy/AdvReac Type Severity Reaction Status Date / Time No Known Allergies Allergy Verified 01/02/14 21:11 Home Medications Medication Instructions Recorded Confirmed Last Taken Type Atorvastatin Calcium [Lipitor] 20 mg PO DAILY 01/02/14 04/04/19 3 Days Ago History ~04/01/19 HYDROcodone/APAP 10-325 [[place]s 1 each PO Q4H PRN #20 tablet 01/03/14 04/04/19 Unknown Rx 10-325 mg TAB] traMADoL [Ultram 50 MG tab] 50 mg PO Q6HR PRN #20 tablet 02/27/15 04/04/19 Unknown Rx Aspirin [Aspirin BABY CHEW TAB] 81 mg PO DAILY #30 tab.chew 09/04/18 04/04/19 Unknown Rx Furosemide [Lasix] 40 mg PO DAILY #30 tablet 09/04/18 04/04/19 Unknown Rx Simvastatin (Nf) [Zocor TAB] 20 mg PO DAILY #30 tablet 09/04/18 04/04/19 Unknown Rx carvediloL [Coreg] 12.5 mg PO DAILY #30 tablet 09/04/18 04/04/19 Unknown Rx hydrALAZINE [Apresoline TAB] 25 mg PO BID #60 tablet 09/04/18 04/04/19 Unknown Rx Active Meds: Active Medications Acetaminophen/Hydrocodone Bitart ([place]s 10/325) 1 each PO Q4H PRN PRN Reason: Pain, Moderate (4-6) Last Admin: 04/04/19 13:00 Dose: 1 each Documented by: Aspirin (Baby Aspirin) 81 mg PO DAILY [facility] Last Admin: 04/05/19 09:54 Dose: 81 mg Documented by: Atorvastatin Calcium (Lipitor) 40 mg PO QHS [facility] Last Admin: 04/04/19 22:25 Dose: 40 mg Documented by: Carvedilol (Coreg) 12.5 mg PO DAILY [facility] Last Admin: 04/05/19 09:54 Dose: 12.5 mg Documented by: Hydralazine HCl (Apresoline) 50 mg PO Q8H [facility] Last Admin: 04/05/19 09:20 Dose: 50 mg Documented by: Heparin Sodium/Sodium Chloride (Heparin/ 0.45% Nacl-25,000 Unit/500 Ml) 25,000 unit in 500 mls @ 27 mls/hr IV TITR [facility]; Protocol Last Admin: 04/05/19 10:55 Dose: 1,350 units/hr, 27 mls/hr Documented by: Tramadol HCl (Ultram) 50 mg PO Q6HR PRN PRN Reason: Pain, Moderate (4-6) Last Admin: 04/05/19 07:41 Dose: 50 mg Documented by: Valsartan (Diovan) 160 mg PO DAILY [facility] Last Admin: 04/05/19 09:54 Dose: 160 mg Documented by: Physical Examination Vital Signs BP 160/111 04/04/19 04:53 General appearance: no acute distress HEENT: Positive: PERRL Neck: Positive: trachea midline Cardiac: Positive: Reg Rate and Rhythm Lungs: Positive: Decreased Breath Sounds Neuro: Positive: Grossly Intact Extremities: Absent: edema Results 04/04/19 08:22 04/04/19 05:11 Assessment and Plan - Patient Problems (1) Acute congestive heart failure Current Visit: Yes Status: Acute Qualifiers: Qualified Code(s): I50.9 - Heart failure, unspecified Plan to address problem: Acute CHF exacerbation EF 15-20% by echo this admission Daily weight Fluid/sodium restriction. IV diuretics, afterload reduction, beta blockers and oral antiplatelet therapy.
[2019-04-05] MEDS: FUROSEMIDE 40 MG/4 ML INJ IV SCH (18:25)
--- NOTE | 2019-04-05 18:42 | Progress Note ---
Assessment and Plan Assessment and plan: 58-year-old -[place] Citizen female with multiple medical problems including congestive heart failure, hypertension, breast cancer and hyperlipidemia comes in for increasing shortness of breath for last 2-3 days. Unable to lie flat. Getting short of breath on minimal exertion. Patient has class IV NYHA symptoms. Patient has not been taking her medications on a regular basis. History of noncompliance present. Also some chest discomfort on exertion. No radiation. Acute on chronic congestive heart faulure with severe dialated cardiomyopathy Type 2 DC vs NSTEMI Acute exacerbation of CHF (congestive heart failure) Hypertensive emergency Hyperlipidemia History of breast cancer Plan Continue supportive care Echo cardiogram today Cardiology consulted Continue GDMT Replace electrolytes Discussed with patient and spouse DVT/GI prophy History Interval history: Patient seen and examined, reports some improvement in shortness of breath. Hospitalist Physical - Physical exam Narrative exam: General appearance: Present: mild distress, well-nourished - EENT Eyes: Present: PERRL ENT: hearing intact, clear oral mucosa - Neck Neck: Present: supple, normal ROM - Respiratory Respiratory effort: normal Respiratory: bilateral: dimished - Cardiovascular Rhythm: regular, murmur systolic Heart Sounds: Present: S1 & S2. Absent: rub, click - Extremities Extremities: no ischemia, pulses symmetrical, No edema Peripheral Pulses: within normal limits - Abdominal General gastrointestinal: Present: soft, non-tender, non-distended, normal bowel sounds Female genitourinary: Present: normal - Integumentary Integumentary: Present: clear, warm, dry - Musculoskeletal Musculoskeletal: gait normal, strength equal bilaterally - Psychiatric Psychiatric: appropriate mood/affect, intact judgment & insight - Neurologic Neurologic: CNII-XII intact, moves all extremities - Allied Health Allied health notes reviewed: nursing, case management - Constitutional Vitals: Temp Pulse Resp BP Pulse Ox 98.7 F 83 18 115/75 96 04/05/19 12:25 04/05/19 17:23 04/05/19 12:25 04/05/19 17:23 04/05/19 17:23 General appearance: Present: no acute distress Results - Labs CBC & Chem 7: 04/04/19 08:22 04/04/19 05:11 Labs: Laboratory Last Values WBC 6.3 K/mm3 (4.5-11.0) 04/04/19 05:11 RBC 4.10 M/mm3 (3.65-5.03) 04/04/19 05:11 Hgb 13.4 gm/dl (10.1-14.3) 04/04/19 08:22 Hct 41.3 % (30.3-42.9) 04/04/19 08:22 MCV 94 fl (79-97) 04/04/19 05:11 MCH 30 pg (28-32) 04/04/19 05:11 MCHC 32 % (30-34) 04/04/19 05:11 RDW 14.3 % (13.2-15.2) 04/04/19 05:11 Plt Count 308 K/mm3 (140-440) 04/04/19 08:22 Lymph % (Auto) 27.6 % (13.4-35.0) 04/04/19 05:11 [place] % (Auto) 6.9 % (0.0-7.3) 04/04/19 05:11 Eos % (Auto) 0.9 % (0.0-4.3) 04/04/19 05:11 Baso % (Auto) 1.4 % (0.0-1.8) 04/04/19 05:11 Lymph # 1.7 K/mm3 (1.2-5.4) 04/04/19 05:11 [place] # 0.4 K/mm3 (0.0-0.8) 04/04/19 05:11 Eos # 0.1 K/mm3 (0.0-0.4) 04/04/19 05:11 Baso # 0.1 K/mm3 (0.0-0.1) 04/04/19 05:11 Seg Neutrophils % 63.2 % (40.0-70.0) 04/04/19 05:11 Seg Neutrophils # 4.0 K/mm3 (1.8-7.7) 04/04/19 05:11 PT 13.2 Sec. (12.2-14.9) 04/04/19 08:22 INR 1.01 (0.87-1.13) 04/04/19 08:22 APTT 117.6 Sec. (24.2-36.6) H* 04/04/19 09:40 Heparin Anti-Xa Level 0.41 U.I./ml (0.3-0.7) 04/05/19 04:03 Sodium 143 mmol/L (137-145) 04/04/19 05:11 Potassium 3.9 mmol/L (3.6-5.0) 04/04/19 05:11 Chloride 105.7 mmol/L (98-107) 04/04/19 05:11 Carbon Dioxide 23 mmol/L (22-30) 04/04/19 05:11 Anion Gap 18 mmol/L 04/04/19 05:11 BUN 13 mg/dL (7-17) 04/04/19 05:11 Creatinine 0.9 mg/dL (0.7-1.2) 04/04/19 05:11 Estimated GFR > 60 ml/min 04/04/19 05:11 BUN/Creatinine Ratio 14 % 04/04/19 05:11 Glucose 103 mg/dL (65-100) H 04/04/19 05:11 Calcium 9.1 mg/dL (8.4-10.2) 04/04/19 05:11 Magnesium 2.10 mg/dL (1.7-2.3) 04/05/19 04:03 Troponin T 0.121 ng/mL (0.00-0.029) H* 04/04/19 08:22 NT-Pro-B Natriuret Pep 19843 pg/mL (0-900) H 04/04/19 05:11 Triglycerides 92 mg/dL (2-149) 04/04/19 05:11 Cholesterol 165 mg/dL (50-199) 04/04/19 05:11 LDL Cholesterol Direct 95 mg/dL (50-130) 04/04/19 05:11 HDL Cholesterol 68 mg/dL (40-59) H 04/04/19 05:11 Cholesterol/HDL Ratio 2.42 % 04/04/19 05:11 Active Medications - Current Medications Current Medications: Generic Name Dose Route Start Last Admin Trade Name Freq PRN Reason Stop Dose Admin Acetaminophen/Hydrocodone Bitart 1 each 04/04/19 08:08 04/04/19 13:00 [place] 10/325 PO 1 each Q4H PRN Administration Pain, Moderate (4-6) Aspirin 81 mg 04/05/19 10:00 04/05/19 09:54 Baby Aspirin PO 81 mg DAILY ANGELIQUE Administration Atorvastatin Calcium 40 mg 04/04/19 22:00 04/04/19 22:25 Lipitor PO 40 mg QHS ANGELIQUE Administration Carvedilol 12.5 mg 04/04/19 10:00 04/05/19 09:54 Coreg PO 12.5 mg DAILY ANGELIQUE Administration Furosemide 40 mg 04/05/19 18:00 04/05/19 18:25 Lasix IV 40 mg 0600,1800 ANGELIQUE Administration Hydralazine HCl 50 mg 04/04/19 09:00 04/05/19 17:00 Apresoline PO 50 mg Q8H ANGELIQUE Administration Heparin Sodium/Sodium Chloride 25,000 unit in 500 mls @ 27 mls/hr 04/04/19 09:00 04/05/19 10:55 Heparin/ 0.45% Nacl-25,000 Unit/500 Ml IV 1,350 units/hr TITR ANGELIQUE 27 mls/hr Administration Protocol 1,350 UNITS/HR Tramadol HCl 50 mg 04/04/19 08:08 04/05/19 07:41 Ultram PO 50 mg Q6HR PRN Administration Pain, Moderate (4-6) Valsartan 160 mg 04/04/19 10:00 04/05/19 09:54 Diovan PO 160 mg DAILY ANGELIQUE Administration Nutrition/Malnutrition Assess - Dietary Evaluation Nutrition/Malnutrition Findings: Nutrition Notes Start: 04/05/19 14:32 Freq: Status: Active Protocol: Document 04/05/19 14:33 LP (Rec: 04/05/19 14:37 LP [id number]) Nutrition Notes Need for Assessment generated from: MD Order,Education Initial or Follow up Brief Note Current Diagnosis Hypertension,Heart Failure, Stroke Other Pertinent Diagnosis NSTEMI, Hx Breast CA Current Diet Cardiac Labs/Tests ProBNP 79600 Pertinent Medications Reviewed Height 5 ft 7 in Weight 94.5 kg [place] Body Weight (kg) 61.36 BMI 32.6 Weight Status Obese Subjective/Other Information Consult for diet education. Pt was eating well [employer] and now. 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 Educated pt on heart healthy diet and reduced/fluid . Pt denies wt changes. GI Symptoms None Minimum of two criteria No Fluid Accumulation Mild (non-severe) #1 Nutrition Diagnosis Food-medication interacti Etiology CHF As Evidenced by Signs and Symptoms pt consuming fast food at time of visit and not following heart healthy diet at home. Nutrition Intervention Teaching Recipient Patient,Family Learning Readiness Good Teaching Methods Discussion,Handout Response to Teaching Verbalize understanding Education Handouts Provided CHF and Fluid diet Barriers to Learning No Barriers RD phone number provided Yes Patient aware of follow up options Yes Revisit per MD consult or patient Sign Off request:
[2019-04-06] MEDS: hydrALAZINE 25 MG TAB PO SCH ×3 (01:47→17:42)
[2019-04-06] MEDS: traMADol 50 MG TAB PO PRN ×3 (04:00→22:35)
[2019-04-06] MEDS: FUROSEMIDE 40 MG/4 ML INJ IV SCH ×2 (05:55→17:43)
[2019-04-06] MEDS: HEPARIN/ 0.45% NACL DRIP 25,000 UNIT/500 ML BAG IV SCH ×2 (06:00→08:45)
[2019-04-06 06:29] LABS: Hemoglobin 11.8 gm/dl (10.1-14.3); Mean Corpuscular HGB Conc 33 % (30-34); Mean Corpuscular Volume 94 fl (79-97); Platelet Count 292 K/mm3 (140-440); Red Blood Count 3.84 M/mm3 (3.65-5.03); Red Cell Distribution Width 14.4 % (13.2-15.2)
[2019-04-06 06:43] LABS: BUN/Creatinine Ratio 21; Blood Urea Nitrogen 21 mg/dL (7-17); Hemolysis Index 6
[2019-04-06] MEDS: VALSARTAN 160MG TAB PO SCH (09:31)
[2019-04-06] MEDS: carvediloL 12.5 MG TAB PO SCH (09:38)
[2019-04-06] MEDS: ASPIRIN 81 MG TAB CHEW PO SCH (09:38)
--- NOTE | 2019-04-06 14:20 | Progress Note ---
Assessment and Plan Acute on chronic systolic heart failure History of dilated cardiomyopathy noncompliant with medical therapy due to financial reasons. noncompliant with outpatient cardiac or medical follow-up. Echocardiogram this admission shows left ventricular ejection fraction less than 15-20%. Recommendations: Daily weight. Sodium/fluid restriction Continue medical therapy for acute on chronic systolic heart failure. Subjective Date of service: 04/06/19 Interval history: Patient reports her breathing has improved since admission. She admits she is diuresing well. Objective Vital Signs Temp Pulse Pulse Resp BP Pulse Ox 04/06/19 10:00 99 04/06/19 09:38 68 129/89 04/06/19 09:31 68 129/90 04/06/19 03:55 98.3 F 70 16 128/99 98 04/05/19 23:52 98.4 F 71 16 118/89 96 04/05/19 23:23 99 04/05/19 22:00 82 82 18 98 04/05/19 20:03 97.4 F L 79 16 112/77 95 04/05/19 17:23 83 115/75 96 - Physical Examination General: No Apparent Distress HEENT: Positive: PERRL Neck: Positive: trachea midline Cardiac: Positive: Reg Rate and Rhythm Lungs: Positive: Decreased Breath Sounds Neuro: Positive: Grossly Intact Extremities: Absent: edema - Labs and Meds CBC 04/06/19 Range/Units 05:48 WBC 6.3 (4.5-11.0) K/mm3 RBC 3.84 (3.65-5.03) M/mm3 Hgb 11.8 (10.1-14.3) gm/dl Hct 36.0 (30.3-42.9) % Plt Count 292 (140-440) K/mm3 Comprehensive Metabolic Panel 04/06/19 Range/Units 05:48 Sodium 142 (137-145) mmol/L Potassium 3.7 (3.6-5.0) mmol/L Chloride 105.1 (98-107) mmol/L Carbon Dioxide 23 (22-30) mmol/L BUN 21 H (7-17) mg/dL Creatinine 1.0 (0.7-1.2) mg/dL Glucose 87 (65-100) mg/dL Calcium 9.0 (8.4-10.2) mg/dL
--- NOTE | 2019-04-06 16:54 | Progress Note ---
Assessment and Plan Assessment and plan: Acute on chronic systolic heart failure with EF of 15-20% -History of dilated cardiomyopathy with noncompliant with medical therapy due to financial reasons and noncompliant with outpatient cardiac or medical follow-up. -Improving -On IV Lasix, ARB and BB -Echocardiogram this admission shows left ventricular ejection fraction less than 15-20%. -Cardiology following Elevated troponin -probably secondary to demand ischemia due to the acute heart failure -Level trended down -On heparin drip -Cardiology following Hypertension -Controlled on meds Hyperlipidemia -Continue statin DVT prophylaxis: On heparin drip Disposition: For discharge when medically stable and cleared by cardiology History Interval history: Patient reports feeling better. Her sob has improved and she denies chest pain Hospitalist Physical - Constitutional Vitals: Temp Pulse Resp BP Pulse Ox 98.3 F 75 16 129/89 99 04/06/19 03:55 04/06/19 12:50 04/06/19 03:55 04/06/19 09:38 04/06/19 10:00 General appearance: Present: no acute distress - EENT Eyes: Present: PERRL, EOM intact ENT: hearing intact - Neck Neck: Present: supple - Respiratory Respiratory effort: normal Respiratory: bilateral: diminished, negative: wheezing (LT side) - Cardiovascular Rhythm: regular Heart Sounds: Present: S1 & S2 - Extremities Extremities: No edema - Abdominal General gastrointestinal: soft, non-tender, normal bowel sounds - Integumentary Integumentary: Present: warm, dry - Psychiatric Psychiatric: appropriate mood/affect - Neurologic Neurologic: CNII-XII intact Results - Labs CBC & Chem 7: 04/06/19 05:48 04/06/19 05:48 Labs: Laboratory Last Values WBC 6.3 K/mm3 (4.5-11.0) 04/06/19 05:48 RBC 3.84 M/mm3 (3.65-5.03) 04/06/19 05:48 Hgb 11.8 gm/dl (10.1-14.3) 04/06/19 05:48 Hct 36.0 % (30.3-42.9) 04/06/19 05:48 MCV 94 fl (79-97) 04/06/19 05:48 MCH 31 pg (28-32) 04/06/19 05:48 MCHC 33 % (30-34) 04/06/19 05:48 RDW 14.4 % (13.2-15.2) 04/06/19 05:48 Plt Count 292 K/mm3 (140-440) 04/06/19 05:48 Lymph % (Auto) 27.6 % (13.4-35.0) 04/04/19 05:11 [place] % (Auto) 6.9 % (0.0-7.3) 04/04/19 05:11 Eos % (Auto) 0.9 % (0.0-4.3) 04/04/19 05:11 Baso % (Auto) 1.4 % (0.0-1.8) 04/04/19 05:11 Lymph # 1.7 K/mm3 (1.2-5.4) 04/04/19 05:11 [place] # 0.4 K/mm3 (0.0-0.8) 04/04/19 05:11 Eos # 0.1 K/mm3 (0.0-0.4) 04/04/19 05:11 Baso # 0.1 K/mm3 (0.0-0.1) 04/04/19 05:11 Seg Neutrophils % 63.2 % (40.0-70.0) 04/04/19 05:11 Seg Neutrophils # 4.0 K/mm3 (1.8-7.7) 04/04/19 05:11 PT 13.2 Sec. (12.2-14.9) 04/04/19 08:22 INR 1.01 (0.87-1.13) 04/04/19 08:22 APTT 117.6 Sec. (24.2-36.6) H* 04/04/19 09:40 Heparin Anti-Xa Level 0.60 U.I./ml (0.3-0.7) 04/06/19 05:48 Sodium 142 mmol/L (137-145) 04/06/19 05:48 Potassium 3.7 mmol/L (3.6-5.0) 04/06/19 05:48 Chloride 105.1 mmol/L (98-107) 04/06/19 05:48 Carbon Dioxide 23 mmol/L (22-30) 04/06/19 05:48 Anion Gap 18 mmol/L 04/06/19 05:48 BUN 21 mg/dL (7-17) H 04/06/19 05:48 Creatinine 1.0 mg/dL (0.7-1.2) 04/06/19 05:48 Estimated GFR > 60 ml/min 04/06/19 05:48 BUN/Creatinine Ratio 21 % 04/06/19 05:48 Glucose 87 mg/dL (65-100) 04/06/19 05:48 Calcium 9.0 mg/dL (8.4-10.2) 04/06/19 05:48 Magnesium 2.10 mg/dL (1.7-2.3) 04/05/19 04:03 Troponin T 0.121 ng/mL (0.00-0.029) H* 04/04/19 08:22 NT-Pro-B Natriuret Pep 79026 pg/mL (0-900) H 04/04/19 05:11 Triglycerides 92 mg/dL (2-149) 04/04/19 05:11 Cholesterol 165 mg/dL (50-199) 04/04/19 05:11 LDL Cholesterol Direct 95 mg/dL (50-130) 04/04/19 05:11 HDL Cholesterol 68 mg/dL (40-59) H 04/04/19 05:11 Cholesterol/HDL Ratio 2.42 % 04/04/19 05:11 Active Medications - Current Medications Current Medications: Generic Name Dose Route Start Last Admin Trade Name Freq PRN Reason Stop Dose Admin Acetaminophen/Hydrocodone Bitart 1 each 04/04/19 08:08 04/04/19 13:00 [place] 10/325 PO 1 each Q4H PRN Administration Pain, Moderate (4-6) Aspirin 81 mg 04/05/19 10:00 04/06/19 09:38 Baby Aspirin PO 81 mg DAILY ANGELIQUE Administration Atorvastatin Calcium 40 mg 04/04/19 22:00 04/05/19 21:57 Lipitor PO 40 mg QHS ANGELIQUE Administration Carvedilol 12.5 mg 04/04/19 10:00 04/06/19 09:38 Coreg PO 12.5 mg DAILY ANGELIQUE Administration Furosemide 40 mg 04/05/19 18:00 04/06/19 05:55 Lasix IV 40 mg 0600,1800 ANGELIQUE Administration Hydralazine HCl 50 mg 04/04/19 09:00 04/06/19 09:31 Apresoline PO 50 mg Q8H ANGELIQUE Administration Heparin Sodium/Sodium Chloride 25,000 unit in 500 mls @ 27 mls/hr 04/04/19 09:00 04/06/19 08:45 Heparin/ 0.45% Nacl-25,000 Unit/500 Ml IV 1,350 units/hr TITR ANGELIQUE 27 mls/hr Administration Protocol 1,350 UNITS/HR Tramadol HCl 50 mg 04/04/19 08:08 04/06/19 14:17 Ultram PO 50 mg Q6HR PRN Administration Pain, Moderate (4-6) Valsartan 160 mg 04/04/19 10:00 04/06/19 09:31 Diovan PO 160 mg DAILY ANGELIQUE Administration Nutrition/Malnutrition Assess - Dietary Evaluation Nutrition/Malnutrition Findings: Nutrition Notes Start: 04/05/19 14:32 Freq: Status: Active Protocol: Document 04/05/19 14:33 LP (Rec: 04/05/19 14:37 LP [id number]) Nutrition Notes Need for Assessment generated from: MD Order,Education Initial or Follow up Brief Note Current Diagnosis Hypertension,Heart Failure, Stroke Other Pertinent Diagnosis NSTEMI, Hx Breast CA Current Diet Cardiac Labs/Tests ProBNP 47737 Pertinent Medications Reviewed Height 5 ft 7 in Weight 94.5 kg [place] Body Weight (kg) 61.36 BMI 32.6 Weight Status Obese Subjective/Other Information Consult for diet education. 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 Educated pt on heart healthy diet and reduced/fluid . Pt denies wt changes. GI Symptoms None Minimum of two criteria No Fluid Accumulation Mild (non-severe) #1 Nutrition Diagnosis Food-medication interacti Etiology CHF As Evidenced by Signs and Symptoms pt consuming fast food at time of visit and not following heart healthy diet at home. Nutrition Intervention Teaching Recipient Patient,Family Learning Readiness Good Teaching Methods Discussion,Handout Response to Teaching Verbalize understanding Education Handouts Provided CHF and Fluid diet Barriers to Learning No Barriers RD phone number provided Yes Patient aware of follow up options Yes Revisit per MD consult or patient Sign Off request:
[2019-04-07] MEDS: hydrALAZINE 25 MG TAB PO SCH ×2 (01:23→10:30)
[2019-04-07] MEDS: HEPARIN/ 0.45% NACL DRIP 25,000 UNIT/500 ML BAG IV SCH (04:00)
[2019-04-07] MEDS: traMADol 50 MG TAB PO PRN (05:55)
[2019-04-07] MEDS: FUROSEMIDE 40 MG/4 ML INJ IV SCH (05:56)
[2019-04-07] MEDS ORDERED: LIP THERAPY VASELINE TP PRN (09:00)
[2019-04-07] MEDS ORDERED: ENOXAPARIN 30 MG/0.3 ML INJ SUB-Q SCH (10:00)
[2019-04-07] MEDS: ASPIRIN 81 MG TAB CHEW PO SCH (10:28)
[2019-04-07] MEDS: carvediloL 12.5 MG TAB PO SCH (10:28)
[2019-04-07] MEDS: VALSARTAN 160MG TAB PO SCH (10:28)
[2019-04-07] MEDS: ENOXAPARIN 40 MG/0.4 ML INJ SUB-Q SCH (10:31)
--- NOTE | 2019-04-07 12:39 | Progress Note ---
<ANDRE SHAH - Last Filed: 04/07/19 12:38> Assessment and Plan Acute on chronic systolic heart failure History of dilated cardiomyopathy noncompliant with medical therapy due to financial reasons. noncompliant with outpatient cardiac or medical follow-up. Echocardiogram this admission shows left ventricular ejection fraction less than 15-20%. Recommendations: Daily weight. Sodium/fluid restriction Continue medical therapy for acute on chronic systolic heart failure. We will change IV lasix to the oral form. Discharge planning in the next 24hrs. Subjective Date of service: 04/07/19 Interval history: Patient reports her breathing is better. Lower extremity has resolved. Objective Vital Signs Temp Pulse Pulse Resp BP BP Pulse Ox 04/07/19 12:18 87/53 04/07/19 11:00 71 04/07/19 07:46 98.5 F 56 L 20 114/84 96 04/07/19 03:43 98.0 F 67 16 114/84 98 04/07/19 01:23 67 112/80 04/06/19 23:13 97.6 F 67 16 112/80 97 04/06/19 22:00 58 L 90 18 100 04/06/19 20:38 98.2 F 61 16 93/58 96 04/06/19 17:42 80 133/84 04/06/19 12:50 75 - Physical Examination General: No Apparent Distress HEENT: Positive: PERRL Neck: Positive: trachea midline Cardiac: Positive: Reg Rate and Rhythm Lungs: Positive: Decreased Breath Sounds Neuro: Positive: Grossly Intact Extremities: Absent: edema - Imaging and Cardiology EKG: report reviewed (sinus rhythm heart rate of 91/m LVH) <CHEO AARON - Last Filed: 04/07/19 15:19> Assessment and Plan I seen and evaluated the patient agree with the assessment and plan. The patient presents with history of dilated cardiomyopathy with ejection fraction of 15-20%. Patient's been noncompliant with medical therapy as well as outpatient cardiac follow up. The professor of social work has been consulted to assist with funding. Patient has been restarted on goal-directed medical therapy. Will change patient's IV diuresis to oral. We'll plan for discharge if oral diuretics make the patient avoid. Objective Vital Signs Temp Pulse Pulse Resp BP BP Pulse Ox 04/07/19 12:18 87/53 04/07/19 12:09 98.7 F 78 20 79/50 96 04/07/19 11:00 71 04/07/19 07:46 98.5 F 56 L 20 114/84 96 04/07/19 03:43 98.0 F 67 16 114/84 98 04/07/19 01:23 67 112/80 04/06/19 23:13 97.6 F 67 16 112/80 97 04/06/19 22:00 58 L 90 18 100 04/06/19 20:38 98.2 F 61 16 93/58 96 04/06/19 17:42 80 133/84
--- NOTE | 2019-04-07 14:19 | Progress Note ---
Assessment and Plan Assessment and plan: Acute on chronic systolic heart failure with EF of 15-20% -History of dilated cardiomyopathy with noncompliant with medical therapy due to financial reasons and noncompliant with outpatient cardiac or medical follow-up. -Improving -IV Lasix changed to oral. Cont BB, ARB discontinued due to hypotension -Echocardiogram this admission shows left ventricular ejection fraction 15-20%. -Cardiology following Elevated troponin -probably secondary to demand ischemia due to the acute heart failure -Level trended down -heparin drip discontinued -Cardiology following Hypertension -Blood pressure trended down, will monitor -Continue Coreg, ARB and hydralazine discontinued Hyperlipidemia -Continue statin Anxiety -on PRN Xanax DVT prophylaxis: Lovenox Disposition: For possible discharge in 1-2 days if cleared by cardiology and medically stable History Interval history: Patient stated that she used to take Xanax for anxiety. Her shortness of breath has improved and she denies chest pain. Hospitalist Physical - Constitutional Vitals: Temp Pulse Resp BP Pulse Ox 98.7 F 78 20 87/53 96 04/07/19 12:09 04/07/19 12:09 04/07/19 12:09 04/07/19 12:18 04/07/19 12:09 General appearance: Present: no acute distress - EENT Eyes: Present: PERRL, EOM intact ENT: hearing intact, clear oral mucosa - Neck Neck: Present: supple - Respiratory Respiratory effort: normal Respiratory: bilateral: CTA - Cardiovascular Rhythm: regular Heart Sounds: Present: S1 & S2 - Extremities Extremities: No edema - Abdominal General gastrointestinal: soft, non-tender, normal bowel sounds - Integumentary Integumentary: Present: warm, dry - Psychiatric Psychiatric: appropriate mood/affect - Neurologic Neurologic: CNII-XII intact Results - Labs CBC & Chem 7: 04/06/19 05:48 04/06/19 05:48 Labs: Laboratory Last Values WBC 6.3 K/mm3 (4.5-11.0) 04/06/19 05:48 RBC 3.84 M/mm3 (3.65-5.03) 04/06/19 05:48 Hgb 11.8 gm/dl (10.1-14.3) 04/06/19 05:48 Hct 36.0 % (30.3-42.9) 04/06/19 05:48 MCV 94 fl (79-97) 04/06/19 05:48 MCH 31 pg (28-32) 04/06/19 05:48 MCHC 33 % (30-34) 04/06/19 05:48 RDW 14.4 % (13.2-15.2) 04/06/19 05:48 Plt Count 292 K/mm3 (140-440) 04/06/19 05:48 Lymph % (Auto) 27.6 % (13.4-35.0) 04/04/19 05:11 [place] % (Auto) 6.9 % (0.0-7.3) 04/04/19 05:11 Eos % (Auto) 0.9 % (0.0-4.3) 04/04/19 05:11 Baso % (Auto) 1.4 % (0.0-1.8) 04/04/19 05:11 Lymph # 1.7 K/mm3 (1.2-5.4) 04/04/19 05:11 [place] # 0.4 K/mm3 (0.0-0.8) 04/04/19 05:11 Eos # 0.1 K/mm3 (0.0-0.4) 04/04/19 05:11 Baso # 0.1 K/mm3 (0.0-0.1) 04/04/19 05:11 Seg Neutrophils % 63.2 % (40.0-70.0) 04/04/19 05:11 Seg Neutrophils # 4.0 K/mm3 (1.8-7.7) 04/04/19 05:11 PT 13.2 Sec. (12.2-14.9) 04/04/19 08:22 INR 1.01 (0.87-1.13) 04/04/19 08:22 APTT 117.6 Sec. (24.2-36.6) H* 04/04/19 09:40 Heparin Anti-Xa Level 0.27 U.I./ml (0.3-0.7) L 04/07/19 05:44 Sodium 142 mmol/L (137-145) 04/06/19 05:48 Potassium 3.7 mmol/L (3.6-5.0) 04/06/19 05:48 Chloride 105.1 mmol/L (98-107) 04/06/19 05:48 Carbon Dioxide 23 mmol/L (22-30) 04/06/19 05:48 Anion Gap 18 mmol/L 04/06/19 05:48 BUN 21 mg/dL (7-17) H 04/06/19 05:48 Creatinine 1.0 mg/dL (0.7-1.2) 04/06/19 05:48 Estimated GFR > 60 ml/min 04/06/19 05:48 BUN/Creatinine Ratio 21 % 04/06/19 05:48 Glucose 87 mg/dL (65-100) 04/06/19 05:48 Calcium 9.0 mg/dL (8.4-10.2) 04/06/19 05:48 Magnesium 2.10 mg/dL (1.7-2.3) 04/05/19 04:03 Troponin T 0.121 ng/mL (0.00-0.029) H* 04/04/19 08:22 NT-Pro-B Natriuret Pep 75389 pg/mL (0-900) H 04/04/19 05:11 Triglycerides 92 mg/dL (2-149) 04/04/19 05:11 Cholesterol 165 mg/dL (50-199) 04/04/19 05:11 LDL Cholesterol Direct 95 mg/dL (50-130) 04/04/19 05:11 HDL Cholesterol 68 mg/dL (40-59) H 04/04/19 05:11 Cholesterol/HDL Ratio 2.42 % 04/04/19 05:11 Active Medications - Current Medications Current Medications: Generic Name Dose Route Start Last Admin Trade Name Freq PRN Reason Stop Dose Admin Acetaminophen/Hydrocodone Bitart 1 each 04/04/19 08:08 04/04/19 13:00 [place] 10/325 PO 1 each Q4H PRN Administration Pain, Moderate (4-6) Alprazolam 0.5 mg 04/07/19 12:08 Xanax PO Q8H PRN Anxiety Aspirin 81 mg 04/05/19 10:00 04/07/19 10:28 Baby Aspirin PO 81 mg DAILY ANGELIQUE Administration Atorvastatin Calcium 40 mg 04/04/19 22:00 04/06/19 22:35 Lipitor PO 40 mg QHS ANGELIQUE Administration Carvedilol 12.5 mg 04/04/19 10:00 04/07/19 10:28 Coreg PO 12.5 mg DAILY ANGELIQUE Administration Enoxaparin Sodium 40 mg 04/07/19 10:00 04/07/19 10:31 Enoxaparin SUB-Q 40 mg QDAY@1000 ANGELIQUE Administration Furosemide 40 mg 04/07/19 18:00 Lasix PO 0600,1800 ANGELIQUE Hydrophilic Ointment 1 applic 04/07/19 09:00 04/07/19 10:34 Vaseline Lip Therapy TP 1 applic DIRECT PRN Administration Dry Lips Tramadol HCl 50 mg 04/04/19 08:08 04/07/19 05:55 Ultram PO 50 mg Q6HR PRN Administration Pain, Moderate (4-6) Nutrition/Malnutrition Assess - Dietary Evaluation Nutrition/Malnutrition Findings: Nutrition Notes Start: 04/05/19 14:32 Freq: Status: Active Protocol: Document 04/05/19 14:33 LP (Rec: 04/05/19 14:37 LP [id number]) Nutrition Notes Need for Assessment generated from: MD Order,Education Initial or Follow up Brief Note Current Diagnosis Hypertension,Heart Failure, Stroke Other Pertinent Diagnosis NSTEMI, Hx Breast CA Current Diet Cardiac Labs/Tests ProBNP Pertinent Medications Reviewed Height 5 ft 7 in Weight 94.5 kg [place] Body Weight (kg) 61.36 BMI 32.6 Weight Status Obese Subjective/Other Information Consult for diet education. 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 Educated pt on heart healthy diet and reduced/fluid . Pt denies wt changes. GI Symptoms None Minimum of two criteria No Fluid Accumulation Mild (non-severe) #1 Nutrition Diagnosis Food-medication interacti Etiology CHF As Evidenced by Signs and Symptoms pt consuming fast food at time of visit and not following heart healthy diet at home. Nutrition Intervention Teaching Recipient Patient,Family Learning Readiness Good Teaching Methods Discussion,Handout Response to Teaching Verbalize understanding Education Handouts Provided CHF and Fluid diet Barriers to Learning No Barriers RD phone number provided Yes Patient aware of follow up options Yes Revisit per MD consult or patient Sign Off request:
[2019-04-07] MEDS: ALPRAZolam 0.5 MG TAB PO PRN ×2 (14:29→21:35)
[2019-04-07] MEDS ORDERED: POTASSIUM CHLORIDE ER 20 MEQ TAB PO ONE (15:19)
[2019-04-07] MEDS: FUROSEMIDE 40 MG TAB PO SCH (17:20)
[2019-04-08 06:45] LABS: BUN/Creatinine Ratio 22; Blood Urea Nitrogen 24 mg/dL (7-17); Hemolysis Index 8
[2019-04-08] MEDS: FUROSEMIDE 40 MG TAB PO SCH (06:46)
[2019-04-08] MEDS: traMADol 50 MG TAB PO PRN (07:25)
[2019-04-08] MEDS: ASPIRIN 81 MG TAB CHEW PO SCH (09:46)
[2019-04-08] MEDS: carvediloL 12.5 MG TAB PO SCH (09:46)
[2019-04-08] MEDS: ENOXAPARIN 40 MG/0.4 ML INJ SUB-Q SCH (09:47)
[2019-04-08] MEDS: ALPRAZolam 0.5 MG TAB PO PRN (09:47)
--- NOTE | 2019-04-08 10:06 | Progress Note ---
Assessment and Plan Acute on chronic systolic heart failure History of dilated cardiomyopathy noncompliant with medical therapy due to financial reasons. noncompliant with outpatient cardiac or medical follow-up. Echocardiogram this admission shows left ventricular ejection fraction less than 15-20%. Recommendations: Advised sodium/fluid restriction. Continue medical therapy for acute on chronic systolic heart failure. Stable, cardiac worthy, for discharge home today. Subjective Date of service: 04/08/19 Interval history: Patient reports her breathing is better. Objective Vital Signs Temp Pulse Resp BP BP Pulse Ox 04/08/19 07:51 75 120/90 99 04/08/19 04:29 98.2 F 63 16 106/74 98 04/07/19 23:09 98.3 F 77 16 100/64 97 04/07/19 22:00 67 04/07/19 19:34 98.1 F 69 16 99/65 98 04/07/19 16:32 97.6 F 82 20 86/63 97 04/07/19 12:18 87/53 04/07/19 12:09 98.7 F 78 20 79/50 96 04/07/19 11:00 71 - Physical Examination General: No Apparent Distress HEENT: Positive: PERRL Neck: Positive: trachea midline Cardiac: Positive: Reg Rate and Rhythm Lungs: Positive: Decreased Breath Sounds Neuro: Positive: Grossly Intact Extremities: Absent: edema - Labs and Meds Comprehensive Metabolic Panel 04/08/19 Range/Units 05:08 Sodium 142 (137-145) mmol/L Potassium 3.8 (3.6-5.0) mmol/L Chloride 103.0 (98-107) mmol/L Carbon Dioxide 26 (22-30) mmol/L BUN 24 H (7-17) mg/dL Creatinine 1.1 (0.7-1.2) mg/dL Glucose 80 (65-100) mg/dL Calcium 9.0 (8.4-10.2) mg/dL
--- NOTE | 2019-04-08 12:23 | Discharge Summary ---
Providers - Providers Date of Admission: 04/04/19 06:59 Date of discharge: 04/08/19 Attending physician: FARRAH [place] 04/04/19 08:12 Consult to Physician [CONS] Routine Comment: Consulting Provider: BERNARD TYLER Physician Instructions: Reason For Exam: NSTEMI 04/05/19 07:03 Consult to Dietitian/Nutrition [CONS] Routine Physician Instructions: Reason For Exam: Reason for Consult: Diet education Primary care physician: TEST CARRIER Hospitalization Reason for admission: Acute on chronic systolic heart failure with EF of 15-20% Condition: Stable Hospital course: Final discharge diagnosis: Acute on chronic systolic heart failure with EF of 15-20% Elevated troponin probably secondary to demand ischemia due to the acute heart failure Hypertension Hyperlipidemia Anxiety and depression Hospital course: Patient was admitted and placed on CHF protocol. For the elevated troponin, she was initially started on heparin drip but was later discontinued since it was determined that the elevated troponin was probably due to demand ischemia from the acute HF. Subsequently, she improved clinically and was then deemed stable for discharge with clinic follow-up after clearance by the cardiology. Disposition: - TO HOME OR SELFCARE Time spent for discharge: 38 mins Core Measure Documentation - Palliative Care Palliative Care/ Comfort Measures: Not Applicable - Core Measures Any of the following diagnoses?: heart failure - Heart Failure Discharge Requirements ROSE/ARB for LVSD if EF <40%: Yes Beta kathleen at discharge: Yes Exam - Constitutional Vitals: Temp Pulse Resp BP Pulse Ox 98.2 F 62 16 120/90 99 04/08/19 04:29 04/08/19 10:00 04/08/19 04:29 04/08/19 07:51 04/08/19 07:51 General appearance: Present: no acute distress, well-nourished - EENT Eyes: Present: PERRL, EOM intact ENT: hearing intact, clear oral mucosa - Neck Neck: Present: supple, normal ROM - Respiratory Respiratory effort: normal Respiratory: bilateral: CTA - Cardiovascular Rhythm: regular Heart Sounds: Present: S1 & S2. Absent: rub, click - Extremities Extremities: No edema Peripheral Pulses: within normal limits - Abdominal General gastrointestinal: Present: soft, non-tender, non-distended, normal bowel sounds - Integumentary Integumentary: Present: clear, warm, dry - Musculoskeletal Musculoskeletal: gait normal, strength equal bilaterally - Psychiatric Psychiatric: appropriate mood/affect, intact judgment & insight - Neurologic Neurologic: CNII-XII intact, moves all extremities Plan Follow up with: PRIMARY CARE, [Primary Care Provider] - 7 Days Prescriptions: Simvastatin 40 mg PO QHS #30 tablet Aspirin [Aspirin BABY CHEW TAB] 81 mg PO DAILY #30 tab.chew Citalopram [Celexa] 20 mg PO QDAY #30 tablet carvediloL [Coreg] 12.5 mg PO BID #60 tablet Furosemide [Lasix TAB] 40 mg PO BID #60 tablet Lisinopril [Zestril TAB] 2.5 mg PO QDAY #30 tab
[2019-04-08 13:14] VITALS: BP 81/56
== END 2019-04-08 14:06 | disposition home or self-care (01) | DRG 280 ==
LOC: ED 04:47 → SUATTDRO 04:47 → 4A 06:59
PROVIDERS: ADMIT Internal Medicine; ATTEND Internal Medicine
DX: I21.4 Non-ST elevation (NSTEMI) myocardial infarction (principal); I50.43 Acute on chronic combined systolic (congestive) and diastolic (congestive) heart failure; I16.1 Hypertensive emergency; I42.0 Dilated cardiomyopathy; I11.0 Hypertensive heart disease with heart failure; F41.9 Anxiety disorder, unspecified; F17.210 Nicotine dependence, cigarettes, uncomplicated; E78.5 Hyperlipidemia, unspecified; Z86.73 Personal history of transient ischemic attack (TIA), and cerebral infarction without residual deficits; Z85.3 Personal history of malignant neoplasm of breast; Z90.13 Acquired absence of bilateral breasts and nipples; Z82.49 Family history of ischemic heart disease and other diseases of the circulatory system; Z79.899 Other long term (current) drug therapy; Z79.82 Long term (current) use of aspirin; Z85.528 Personal history of other malignant neoplasm of kidney
CPT/HCPCS: 36415; 71045; 80048; 80061; 83735; 83880; 84484; 85014; 85018; 85025; 85027; 85049; 85520; 85610; 85730; 87116; 93005; 93010; 93306; 96374; G0378; A9270-GY; J0360; J1644; J1650; J1940

== ENCOUNTER 2019-09-18 09:58 | Emergency (ER) | payer SELFPAY ==
[2019-09-18] MEDS ORDERED: FUROSEMIDE 40 MG/4 ML INJ IV ONE (10:30)
--- NOTE | 2019-09-18 10:49 | XRay Report ---
CHEST 1 VIEW INDICATION: Chest Pain. COMPARISON: 04/04/2019 FINDINGS: Support devices: None. Heart: Within normal limits. Lungs/Pleura: Minimal streaky right basilar airspace disease with otherwise clear lungs. Additional findings: None. IMPRESSION: 1. Pulmonary findings as above. Signer Name: Richard Rey MD Signed: 09/18/2019 10:45 AM Workstation Name: [id number]
--- NOTE | 2019-09-18 11:04 | Emergency Department Report ---
ED Shortness of Breath HPI - General Chief Complaint: Dyspnea/Respdistress Stated Complaint: SOB Time Seen by Provider: 09/18/19 10:24 Source: patient, EMS Mode of arrival: Stretcher Limitations: No Limitations - History of Present Illness Initial Comments: Patient is a 59-year-old F [place] female with a past medical history of hypertension and congestive heart failure who is presenting with shortness of breath. In April 2019 the patient had a echo cardiogram which showed that she has a EF of 15 to 20%. Patient states that she ran out of her Lasix approximately 4 to 5 days ago and her symptoms started 3 days ago. Patient states that with minimal exertion she is becoming winded. Her exercise tolerance is dropped dramatically. Patient denies any chest pain cough fevers chills nausea vomiting diarrhea at this time. - Related Data Previous Rx's Medication Instructions Recorded Last Taken Type Aspirin [Aspirin BABY CHEW TAB] 81 mg PO DAILY #30 tab.chew 04/08/19 Unknown Rx Citalopram [Celexa] 20 mg PO QDAY #30 tablet 04/08/19 Unknown Rx Furosemide [Lasix TAB] 40 mg PO BID #60 tablet 09/18/19 Unknown Rx Lisinopril [Zestril TAB] 2.5 mg PO QDAY #30 tab 09/18/19 Unknown Rx Simvastatin 40 mg PO QHS #30 tablet 09/18/19 Unknown Rx carvediloL [Coreg] 12.5 mg PO BID #60 tablet 09/18/19 Unknown Rx Allergies Allergy/AdvReac Type Severity Reaction Status Date / Time No Known Allergies Allergy Verified 01/02/14 21:11 ED Review of Systems ROS: Stated complaint: SOB Other details as noted in HPI Comment: All other systems reviewed and negative ED Past Medical Hx - Past Medical History Previous Medical History?: Yes Hx Hypertension: Yes Hx CVA: Yes Hx Congestive Heart Failure: Yes Hx Diabetes: No Hx of Cancer: Yes (breast, kidney) Hx Asthma: No Hx COPD: No Hx HIV: No Additional medical history: Bilateral Breast CA, Right Kidney CA, left lung collapsed, broken ribs. MS - Surgical History Past Surgical History?: Yes Additional Surgical History: Bilateral mastectomy with reconstruction, bilateral lymph nodes removed, right kidney removed, cyst to throat removed as a child - Social History Smoking Status: Never Smoker Substance Use Type: None - Medications Home Medications: Home Medications Medication Instructions Recorded Confirmed Last Taken Type Aspirin [Aspirin BABY CHEW TAB] 81 mg PO DAILY #30 tab.chew 04/08/19 Unknown Rx Citalopram [Celexa] 20 mg PO QDAY #30 tablet 04/08/19 Unknown Rx Furosemide [Lasix TAB] 40 mg PO BID #60 tablet 09/18/19 Unknown Rx Lisinopril [Zestril TAB] 2.5 mg PO QDAY #30 tab 09/18/19 Unknown Rx Simvastatin 40 mg PO QHS #30 tablet 09/18/19 Unknown Rx carvediloL [Coreg] 12.5 mg PO BID #60 tablet 09/18/19 Unknown Rx ED Physical Exam - General Limitations: No Limitations General appearance: alert, in no apparent distress, other (Despite having an ad equate oxygen saturation patient looks physically short of breath) - Head Head exam: Present: atraumatic, normocephalic - Eye Eye exam: Present: normal appearance - ENT ENT exam: Present: mucous membranes moist - Neck Neck exam: Present: normal inspection - Respiratory Respiratory exam: Present: normal lung sounds bilaterally. Absent: respiratory distress, wheezes, rales, rhonchi, chest wall tenderness - Cardiovascular Cardiovascular Exam: Present: regular rate, normal rhythm, normal heart sounds. Absent: systolic murmur, diastolic murmur, rubs, gallop - GI/Abdominal GI/Abdominal exam: Present: soft, normal bowel sounds. Absent: distended, tenderness, guarding, rebound - Extremities Exam Extremities exam: Present: normal inspection - Back Exam Back exam: Present: normal inspection - Neurological Exam Neurological exam: Present: alert, oriented X3 - Psychiatric Psychiatric exam: Present: normal affect, normal mood - Skin Skin exam: Present: warm, dry, intact, normal color. Absent: rash ED Course Vital Signs 09/18/19 09/18/19 09/18/19 10:08 10:23 10:24 Temperature 98.0 F Pulse Rate 87 Respiratory 18 Rate Blood Pressure 136/97 Blood Pressure 136/97 [Left] O2 Sat by Pulse 100 100 100 Oximetry 09/18/19 09/18/19 09/18/19 10:30 11:01 11:19 Temperature Pulse Rate 86 87 82 Respiratory 24 25 H Rate Blood Pressure 140/116 136/97 136/97 Blood Pressure [Left] O2 Sat by Pulse 97 100 100 Oximetry 09/18/19 11:31 Temperature Pulse Rate 81 Respiratory 21 Rate Blood Pressure 137/107 Blood Pressure [Left] O2 Sat by Pulse 100 Oximetry - Reevaluation(s) Reevaluation #1: 09/18/19 12:28 Patient has diuresed approximately 500 cc of urine and is starting to feel somewhat better. Reevaluation #2: 09/18/19 13:02 Patient was able to ambulate to the bathroom and back with no significant shortness of breath and the patient stable for discharge at this time. ED Medical Decision Making - Lab Data Result diagrams: 09/18/19 10:42 09/18/19 10:42 Lab Results 09/18/19 09/18/19 09/18/19 Range/Units 10:42 10:42 10:42 WBC 7.0 (4.5-11.0) K/mm3 RBC 3.96 (3.65-5.03) M/mm3 Hgb 12.1 (10.1-14.3) gm/dl Hct 37.3 (30.3-42.9) % MCV 94 (79-97) fl MCH 31 (28-32) pg MCHC 33 (30-34) % RDW 14.0 (13.2-15.2) % Plt Count 317 (140-440) K/mm3 Lymph % (Auto) 34.7 (13.4-35.0) % [place] % (Auto) 4.9 (0.0-7.3) % Eos % (Auto) 0.7 (0.0-4.3) % Baso % (Auto) 2.7 H (0.0-1.8) % Lymph # 2.4 (1.2-5.4) K/mm3 [place] # 0.3 (0.0-0.8) K/mm3 Eos # 0.0 (0.0-0.4) K/mm3 Baso # 0.2 H (0.0-0.1) K/mm3 Seg Neutrophils % 57.0 (40.0-70.0) % Seg Neutrophils # 4.0 (1.8-7.7) K/mm3 D-Dimer (0-234) ng/mlDDU Sodium 143 (137-145) mmol/L Potassium 4.6 (3.6-5.0) mmol/L Chloride 104.8 (98-107) mmol/L Carbon Dioxide 27 (22-30) mmol/L Anion Gap 16 mmol/L BUN 19 H (7-17) mg/dL Creatinine 1.0 (0.7-1.2) mg/dL Estimated GFR > 60 ml/min BUN/Creatinine Ratio 19 % Glucose 96 (65-100) mg/dL Calcium 10.0 (8.4-10.2) mg/dL Troponin T < 0.010 (0.00-0.029) ng/mL NT-Pro-B Natriuret Pep 17791 H (0-900) pg/mL 09/18/19 Range/Units 10:42 WBC (4.5-11.0) K/mm3 RBC (3.65-5.03) M/mm3 Hgb (10.1-14.3) gm/dl Hct (30.3-42.9) % MCV (79-97) fl MCH (28-32) pg MCHC (30-34) % RDW (13.2-15.2) % Plt Count (140-440) K/mm3 Lymph % (Auto) (13.4-35.0) % [place] % (Auto) (0.0-7.3) % Eos % (Auto) (0.0-4.3) % Baso % (Auto) (0.0-1.8) % Lymph # (1.2-5.4) K/mm3 [place] # (0.0-0.8) K/mm3 Eos # (0.0-0.4) K/mm3 Baso # (0.0-0.1) K/mm3 Seg Neutrophils % (40.0-70.0) % Seg Neutrophils # (1.8-7.7) K/mm3 D-Dimer 321.11 H (0-234) ng/mlDDU Sodium (137-145) mmol/L Potassium (3.6-5.0) mmol/L Chloride (98-107) mmol/L Carbon Dioxide (22-30) mmol/L Anion Gap mmol/L BUN (7-17) mg/dL Creatinine (0.7-1.2) mg/dL Estimated GFR ml/min BUN/Creatinine Ratio % Glucose (65-100) mg/dL Calcium (8.4-10.2) mg/dL Troponin T (0.00-0.029) ng/mL NT-Pro-B Natriuret Pep (0-900) pg/mL - EKG Data 09/18/19 11:11 EKG shows sinus rhythm with a rate of 85. [place] is normal intervals are normal. There is occasional PVCs. T wave inversion and V5 and V6. There is no ST segment elevation or depressions. Time of interpretation 1026 - Radiology Data [facility] [address] [place] [address] XRay Report Signed Patient: MELANIE MALDONADO MR#: [id number] : 1960 Acct:[id number] Age/Sex: 59 / F ADM Date: 09/18/19 Loc: ED Attending Dr: Ordering Physician: KAYLYN FUENTES MD Date of Service: 09/18/19 Procedure(s): XR chest 1V ap Accession Number(s): [id number] cc: KAYLYN FUENTES MD Fluoro Time In Minutes: CHEST 1 VIEW INDICATION: Chest Pain. COMPARISON: 04/04/2019 FINDINGS: Support devices: None. Heart: Within normal limits. Lungs/Pleura: Minimal streaky right basilar airspace disease with otherwise clear lungs. Additional findings: None. IMPRESSION: 1. Pulmonary findings as above. Signer Name: Richard Rey MD Signed: 09/18/2019 10:45 AM Workstation Name: [id number] - Medical Decision Making Patient 59-year-old F [place] female is presenting with shortness of breath. Patient had minimal amount of pulmonary edema. Patient was able to diurese and is feeling better and will have refills of her Lasix given to her Critical care attestation.: If time is entered above; I have spent that time in minutes in the direct care of this critically ill patient, excluding procedure time. ED Disposition Clinical Impression: Acute exacerbation of CHF (congestive heart failure) Disposition: DC- TO HOME OR SELFCARE Is pt being admited?: No Does the pt Need Aspirin: No Condition: Stable Instructions: Heart Failure (ED) Prescriptions: Simvastatin 40 mg PO QHS #30 tablet carvediloL [Coreg] 12.5 mg PO BID #60 tablet Furosemide [Lasix TAB] 40 mg PO BID #60 tablet Lisinopril [Zestril TAB] 2.5 mg PO QDAY #30 tab Referrals: PRIMARY CARE, [Primary Care Provider] - 3-5 Days Time of Disposition: 13:04
[2019-09-18 11:09] LABS: Basophils # (Auto) 0.2 K/mm3 (0.0-0.1); Basophils % (Auto) 2.7 % (0.0-1.8); Eosinophils % (Auto) 0.7 % (0.0-4.3); Hematocrit 37.3 % (30.3-42.9); Hemoglobin 12.1 gm/dl (10.1-14.3); Lymphocytes # (Auto) 2.4 K/mm3 (1.2-5.4); Lymphocytes % (Auto) 34.7 % (13.4-35.0); Mean Corpuscular HGB Conc 33 % (30-34); Mean Corpuscular Volume 94 fl (79-97); Monocytes # (Auto) 0.3 K/mm3 (0.0-0.8); Monocytes % (Auto) 4.9 % (0.0-7.3); Platelet Count 317 K/mm3 (140-440); Red Blood Count 3.96 M/mm3 (3.65-5.03)
[2019-09-18 11:25] LABS: BUN/Creatinine Ratio 19; Blood Urea Nitrogen 19 mg/dL (7-17); Hemolysis Index 23
[2019-09-18 13:53] VITALS: BP 134/96
== END 2019-09-18 13:30 | disposition home or self-care (01) ==
LOC: ED 09:58
DX: I11.0 Hypertensive heart disease with heart failure (principal); I50.9 Heart failure, unspecified; Z98.890 Other specified postprocedural states; Z86.73 Personal history of transient ischemic attack (TIA), and cerebral infarction without residual deficits
CPT/HCPCS: 36415; 71045; 80048; 83880; 84484; 85025; 85379; 93005; 96374; 99285; J1940

== ENCOUNTER 2020-02-20 11:50 | Emergency (ER) | payer SELFPAY ==
[2020-02-20 12:38] VITALS: BP 161/115
[2020-02-20] MEDS ORDERED: FUROSEMIDE 40 MG/4 ML INJ IV ONE (13:27)
--- NOTE | 2020-02-20 13:33 | Emergency Department Report ---
ED Shortness of Breath HPI - General Chief Complaint: Dyspnea/Respdistress Stated Complaint: DIZZINESS Time Seen by Provider: 02/20/20 13:22 Source: EMS Mode of arrival: Wheelchair Limitations: No Limitations - History of Present Illness Initial Comments: Patient is 59 years old female with history of congestive heart failure, hypertension and multiple sclerosis. Patient brought to the emergency room via EMS from home for evaluation of difficulty breathing and shortness of breath for the last 3 days. Patient stated that she is out of her all medication. Patient is taking Lasix 40 mg, lisinopril 2.5, carvedilol 12.5 mg and simvastatin 20 mg. Patient denied any chest pain, fever or chills. MD Complaint: shortness of breath -: days(s) (3) Known History Of: congestive heart failure - Related Data Previous Rx's Medication Instructions Recorded Last Taken Type Aspirin [Aspirin BABY CHEW TAB] 81 mg PO DAILY #30 tab.chew 04/08/19 Unknown Rx Citalopram [Celexa] 20 mg PO QDAY #30 tablet 04/08/19 Unknown Rx Furosemide [Lasix TAB] 40 mg PO BID #60 tablet 09/18/19 Unknown Rx Lisinopril [Zestril TAB] 2.5 mg PO QDAY #30 tab 09/18/19 Unknown Rx Simvastatin 40 mg PO QHS #30 tablet 09/18/19 Unknown Rx carvediloL [Coreg] 12.5 mg PO BID #60 tablet 09/18/19 Unknown Rx Furosemide [Lasix TAB] 40 mg PO QDAY #60 tablet 02/20/20 Unknown Rx Lisinopril [Zestril TAB] 2.5 mg PO QDAY #30 tab 02/20/20 Unknown Rx Simvastatin 40 mg PO DAILY #30 tablet 02/20/20 Unknown Rx carvediloL [Coreg] 12.5 mg PO BID #60 tablet 02/20/20 Unknown Rx Allergies Allergy/AdvReac Type Severity Reaction Status Date / Time No Known Allergies Allergy Verified 01/02/14 21:11 ED Review of Systems ROS: Stated complaint: DIZZINESS Other details as noted in HPI Comment: All other systems reviewed and negative Constitutional: denies: chills, fever Respiratory: orthopnea, shortness of breath, SOB with exertion, SOB at rest. denies: cough, wheezing Cardiovascular: denies: chest pain, palpitations Gastrointestinal: denies: abdominal pain, nausea, vomiting Musculoskeletal: denies: back pain Neurological: denies: headache, weakness, numbness, paresthesias, confusion, abnormal gait ED Past Medical Hx - Past Medical History Hx Hypertension: Yes Hx CVA: Yes Hx Congestive Heart Failure: Yes Hx Diabetes: No Hx Asthma: No Hx COPD: No Hx HIV: No Additional medical history: Bilateral Breast CA, Right Kidney CA, left lung collapsed, broken ribs. MS - Surgical History Additional Surgical History: Bilateral mastectomy with reconstruction, bilateral lymph nodes removed, right kidney removed, cyst to throat removed as a child - Social History Smoking Status: Never Smoker Substance Use Type: None - Medications Home Medications: Home Medications Medication Instructions Recorded Confirmed Last Taken Type Aspirin [Aspirin BABY CHEW TAB] 81 mg PO DAILY #30 tab.chew 04/08/19 Unknown Rx Citalopram [Celexa] 20 mg PO QDAY #30 tablet 04/08/19 Unknown Rx Furosemide [Lasix TAB] 40 mg PO BID #60 tablet 09/18/19 Unknown Rx Lisinopril [Zestril TAB] 2.5 mg PO QDAY #30 tab 09/18/19 Unknown Rx Simvastatin 40 mg PO QHS #30 tablet 09/18/19 Unknown Rx carvediloL [Coreg] 12.5 mg PO BID #60 tablet 09/18/19 Unknown Rx Furosemide [Lasix TAB] 40 mg PO QDAY #60 tablet 02/20/20 Unknown Rx Lisinopril [Zestril TAB] 2.5 mg PO QDAY #30 tab 02/20/20 Unknown Rx Simvastatin 40 mg PO DAILY #30 tablet 02/20/20 Unknown Rx carvediloL [Coreg] 12.5 mg PO BID #60 tablet 02/20/20 Unknown Rx ED Physical Exam - General Limitations: No Limitations General appearance: alert, in no apparent distress - Head Head exam: Present: atraumatic, normocephalic, normal inspection - Eye Eye exam: Present: normal appearance, PERRL - ENT ENT exam: Present: normal exam, normal orophraynx, mucous membranes moist - Neck Neck exam: Present: normal inspection, full ROM. Absent: tenderness, meningismus - Respiratory Respiratory exam: Present: normal lung sounds bilaterally - Cardiovascular Cardiovascular Exam: Present: regular rate, normal rhythm, normal heart sounds - GI/Abdominal GI/Abdominal exam: Present: soft, normal bowel sounds. Absent: distended, tenderness, guarding, rebound, rigid, organomegaly, mass, bruit, pulsatile mass, hernia - Extremities Exam Extremities exam: Present: normal inspection, full ROM, normal capillary refill. Absent: pedal edema, calf tenderness - Back Exam Back exam: Present: normal inspection, full ROM. Absent: CVA tenderness (R), CVA tenderness (L), muscle spasm, paraspinal tenderness, vertebral tenderness - Neurological Exam Neurological exam: Present: alert, oriented X3, CN II-XII intact, reflexes normal. Absent: motor sensory deficit - Psychiatric Psychiatric exam: Present: normal mood - Skin Skin exam: Present: warm, intact, normal color ED Course Vital Signs 02/20/20 12:37 Temperature 98.1 F Pulse Rate 91 H Respiratory 20 Rate Blood Pressure 161/115 O2 Sat by Pulse 97 Oximetry ED Medical Decision Making - Lab Data Result diagrams: 02/20/20 13:40 02/20/20 13:40 - EKG Data -: EKG Interpreted by [place] EKG shows normal: sinus rhythm Rate: normal - EKG Data Interpretation: no acute changes - Radiology Data Radiology results: report reviewed - Medical Decision Making Patient is 59 years old female with history of congestive heart failure, hypertension and multiple sclerosis. Patient brought to the emergency room via EMS from home for evaluation of difficulty breathing and shortness of breath for the last 3 days. Patient stated that she is out of her all medication. Patient is taking Lasix 40 mg, lisinopril 2.5, carvedilol 12.5 mg and simvas tatin 20 mg. Patient denied any chest pain, fever or chills. Patient remained in no distress. Oxygen saturation remained 97% on room air. Labs reviewed and is unremarkable except for significantly elevated BNP. Patient received Lasix 40 mg IV with good urine output. Chest x-ray showed no pulmonary edema. I refilled patient medication I gave him [facility] to follow-up for further management. I advised the patient to return to the ER if he develop any new symptoms. Critical care attestation.: If time is entered above; I have spent that time in minutes in the direct care of this critically ill patient, excluding procedure time. ED Disposition Clinical Impression: Acute congestive heart failure, Malignant hypertension Disposition: TO HOME OR SELFCARE Is pt being admited?: No Condition: Stable Instructions: Hypertension (ED), Heart Failure (ED) Prescriptions: carvediloL [Coreg] 12.5 mg PO BID #60 tablet Furosemide [Lasix TAB] 40 mg PO QDAY #60 tablet Simvastatin 40 mg PO DAILY #30 tablet Lisinopril [Zestril TAB] 2.5 mg PO QDAY #30 tab Referrals: PRIMARY CARE, [Primary Care Provider] - 3-5 Days [facility] [Provider Group] - 3-5 Days
[2020-02-20 13:57] LABS: Basophils % (Auto) 0.5 % (0.0-1.8); Eosinophils # (Auto) 0.1 K/mm3 (0.0-0.4); Eosinophils % (Auto) 0.8 % (0.0-4.3); Hematocrit 37.4 % (30.3-42.9); Hemoglobin 12.2 gm/dl (10.1-14.3); Lymphocytes # (Auto) 2.7 K/mm3 (1.2-5.4); Mean Corpuscular HGB Conc 33 % (30-34); Mean Corpuscular Volume 97 fl (79-97); Monocytes # (Auto) 0.5 K/mm3 (0.0-0.8); Monocytes % (Auto) 6.2 % (0.0-7.3); Platelet Count 339 K/mm3 (140-440); Red Blood Count 3.88 M/mm3 (3.65-5.03); Red Cell Distribution Width 15.5 % (13.2-15.2)
[2020-02-20 14:16] LABS: BUN/Creatinine Ratio 18; Blood Urea Nitrogen 16 mg/dL (7-17); Calcium 9.4 mg/dL (8.4-10.2); Hemolysis Index 7
[2020-02-20 14:19] LABS: Alanine Aminotransferase 10 units/L (7-56); Albumin 4.2 g/dL (3.9-5)
[2020-02-20 14:35] LABS: Bilirubin,Direct < 0.2 mg/dL (0-0.2)
--- NOTE | 2020-02-20 15:06 | XRay Report ---
CHEST 1 VIEW INDICATION / CLINICAL INFORMATION: Dyspnea. COMPARISON: 09/18/2019 FINDINGS: SUPPORT DEVICES: None. HEART / MEDIASTINUM: Cardiomegaly LUNGS / PLEURA: No significant pulmonary or pleural abnormality. No pneumothorax. ADDITIONAL FINDINGS: No significant additional findings. IMPRESSION: Cardiomegaly without acute disease or interval change from 09/18/2019 Signer Name: Jaret Garcia MD FACR Signed: 02/20/2020 3:02 PM Workstation Name: [id number]
[2020-02-22 16:16] LABS: Chol/HDL Ratio 2.73 %; HDL Cholesterol 71 mg/dL (40-59); LDL Cholesterol,Direct 114 mg/dL (50-130)
== END 2020-02-20 15:33 | disposition home or self-care (01) ==
LOC: ED 11:50
DX: I11.0 Hypertensive heart disease with heart failure (principal); I50.9 Heart failure, unspecified; Z79.899 Other long term (current) drug therapy; Z86.73 Personal history of transient ischemic attack (TIA), and cerebral infarction without residual deficits; Z98.890 Other specified postprocedural states
CPT/HCPCS: 36415; 71045; 80048; 80061; 80076; 83880; 84484; 85025; 93005; 96374; 99284; J1940

== ENCOUNTER 2020-05-15 14:24 | Emergency (ER) | payer SELFPAY ==
--- NOTE | 2020-05-15 14:56 | Event Note ---
ED Screening Note Date of service: 05/15/20 Time: 14:53 ED Screening Note: 59-year-old -[place] female with a multiple history of MS, congestive heart failure, hypertension, breast cancer with bilateral mastectomy and right kidney cancer with removal. She presents to the emergency room for shortness of breath intermittent chest pain. Shortness of breath with exertion. This initial assessment/diagnostic orders/clinical plan/treatment(s) is/are subject to change based on patients health status, clinical progression and re- assessment by fellow clinical providers in the ED. Further treatment and workup at subsequent clinical providers discretion. Patient/guardian urged not to elope from the ED as their condition may be serious if not clinically assessed and managed. Initial orders include:
[2020-05-15 15:31] LABS: Basophils # (Auto) 0.1 K/mm3 (0.0-0.1); Eosinophils % (Auto) 0.1 % (0.0-4.3); Hematocrit 39.1 % (30.3-42.9); Hemoglobin 12.6 gm/dl (10.1-14.3); Lymphocytes # (Auto) 2.3 K/mm3 (1.2-5.4); Lymphocytes % (Auto) 28.3 % (13.4-35.0); Mean Corpuscular HGB Conc 32 % (30-34); Mean Corpuscular Volume 96 fl (79-97); Monocytes # (Auto) 0.6 K/mm3 (0.0-0.8); Platelet Count 336 K/mm3 (140-440); Red Blood Count 4.08 M/mm3 (3.65-5.03); Red Cell Distribution Width 15.9 % (13.2-15.2)
--- NOTE | 2020-05-15 15:43 | XRay Report ---
CHEST 2 VIEWS INDICATION / CLINICAL INFORMATION: sob. COMPARISON: 02/20/2020 FINDINGS: SUPPORT DEVICES: None. HEART / MEDIASTINUM: Unchanged LUNGS / PLEURA: The lungs appear unchanged No pneumothorax. ADDITIONAL FINDINGS: No significant additional findings. IMPRESSION: 1. No significant change. Signer Name: Carlton Zuñiga MD Signed: 05/15/2020 3:38 PM Workstation Name: [id number]
[2020-05-15 15:55] LABS: Albumin 4.3 g/dL (3.9-5); Calcium 9.8 mg/dL (8.4-10.2)
--- NOTE | 2020-05-15 22:37 | Emergency Department Report ---
ED Shortness of Breath HPI - General Chief Complaint: Dyspnea/Respdistress Stated Complaint: SOB Time Seen by Provider: 05/15/20 22:14 Source: patient Mode of arrival: Ambulatory Limitations: No Limitations - History of Present Illness Initial Comments: 59-year-old female, history of MS, CHF, presents to ED shortness of breath x4 to 5 days. Patient reports she ran out of all of her medications (carvedilol, furosemide, lisinopril, simvastatin) about 5 days ago. She reports dyspnea on exertion. She denies orthopnea, cough, fever, lower extremity swelling. Patient states she has had chest pain over the last week, throbbing in nature. She denies any aggravating or alleviating factors. She denies any chest pain at this time. There is no associated nausea, vomiting, diaphoresis with it. MD Complaint: shortness of breath -: days(s) (4) Severity: moderate Consistency: intermittent Improves With: rest Worsens With: exertion Known History Of: congestive heart failure Associated Symptoms: chest pain Treatments Prior to Arrival: none - Related Data Home Oxygen Therapy: No Previous Rx's Medication Instructions Recorded Last Taken Type Aspirin [Aspirin BABY CHEW TAB] 81 mg PO DAILY #30 tab.chew 04/08/19 Unknown Rx Citalopram [Celexa] 20 mg PO QDAY #30 tablet 04/08/19 Unknown Rx Lisinopril [Zestril TAB] 2.5 mg PO QDAY #30 tab 09/18/19 Unknown Rx Simvastatin 40 mg PO QHS #30 tablet 09/18/19 Unknown Rx carvediloL [Coreg] 12.5 mg PO BID #60 tablet 09/18/19 Unknown Rx Furosemide [Lasix TAB] 40 mg PO QDAY #60 tablet 02/20/20 Unknown Rx Furosemide [Lasix TAB] 40 mg PO BID #60 tablet 05/15/20 Unknown Rx Lisinopril [Zestril TAB] 2.5 mg PO QDAY #30 tab 05/15/20 Unknown Rx Simvastatin 40 mg PO DAILY #30 tablet 05/15/20 Unknown Rx carvediloL [Coreg] 12.5 mg PO BID #60 tablet 05/15/20 Unknown Rx Allergies Allergy/AdvReac Type Severity Reaction Status Date / Time No Known Allergies Allergy Verified 01/02/14 21:11 ED Review of Systems ROS: Stated complaint: SOB Other details as noted in HPI Comment: All other systems reviewed and negative Constitutional: denies: fever Respiratory: SOB with exertion. denies: cough Cardiovascular: chest pain Gastrointestinal: denies: nausea, vomiting Musculoskeletal: other (Denies leg pain or swelling) ED Past Medical Hx - Past Medical History Previous Medical History?: Yes Hx Hypertension: Yes Hx CVA: Yes Hx Congestive Heart Failure: Yes Hx Diabetes: No Hx Asthma: No Hx COPD: No Hx HIV: No Additional medical history: Bilateral Breast CA, Right Kidney CA, left lung collapsed, broken ribs. MS - Surgical History Past Surgical History?: Yes Additional Surgical History: Bilateral mastectomy with reconstruction, bilateral lymph nodes removed, right kidney removed, cyst to throat removed as a child - Social History Smoking Status: Never Smoker Substance Use Type: None - Medications Home Medications: Home Medications Medication Instructions Recorded Confirmed Last Taken Type Aspirin [Aspirin BABY CHEW TAB] 81 mg PO DAILY #30 tab.chew 04/08/19 Unknown Rx Citalopram [Celexa] 20 mg PO QDAY #30 tablet 04/08/19 Unknown Rx Lisinopril [Zestril TAB] 2.5 mg PO QDAY #30 tab 09/18/19 Unknown Rx Simvastatin 40 mg PO QHS #30 tablet 09/18/19 Unknown Rx carvediloL [Coreg] 12.5 mg PO BID #60 tablet 09/18/19 Unknown Rx Furosemide [Lasix TAB] 40 mg PO QDAY #60 tablet 02/20/20 Unknown Rx Furosemide [Lasix TAB] 40 mg PO BID #60 tablet 05/15/20 Unknown Rx Lisinopril [Zestril TAB] 2.5 mg PO QDAY #30 tab 05/15/20 Unknown Rx Simvastatin 40 mg PO DAILY #30 tablet 05/15/20 Unknown Rx carvediloL [Coreg] 12.5 mg PO BID #60 tablet 05/15/20 Unknown Rx ED Physical Exam - General Limitations: No Limitations General appearance: alert, in no apparent distress - Head Head exam: Present: atraumatic, normocephalic - Eye Eye exam: Present: normal appearance, EOMI - ENT ENT exam: Present: mucous membranes moist - Neck Neck exam: Present: normal inspection - Respiratory Respiratory exam: Present: normal lung sounds bilaterally. Absent: respiratory distress - Cardiovascular Cardiovascular Exam: Present: regular rate, normal rhythm - GI/Abdominal GI/Abdominal exam: Present: soft. Absent: distended, tenderness - Extremities Exam Extremities exam: Present: normal inspection. Absent: pedal edema, calf tenderness - Neurological Exam Neurological exam: Present: alert, oriented X3 - Psychiatric Psychiatric exam: Present: normal affect, normal mood - Skin Skin exam: Present: warm, dry, intact, normal color ED Course Vital Signs 05/15/20 05/15/20 05/15/20 14:32 17:47 23:20 Temperature 97.9 F Pulse Rate 86 84 80 Respiratory 26 H 16 17 Rate Blood Pressure 147/111 Blood Pressure 150/102 122/85 [Right] O2 Sat by Pulse 95 98 100 Oximetry ED Medical Decision Making - Lab Data Result diagrams: 05/15/20 15:08 05/15/20 15:08 - EKG Data -: EKG Interpreted by Me EKG shows normal: sinus rhythm, axis, intervals, QRS complexes Rate: normal - EKG Data Interpretation: other (lateral T wave inversion) - Radiology Data Radiology results: report reviewed, image reviewed - Medical Decision Making 59-year-old female presents to ED with shortness of breath. Patient has history of CHF and reports that she has run out of all of her medications, including her Lasix. Patient is in no respiratory distress. O2 sats are normal. Chest x-ray is clear of any pulmonary edema or effusions. EKG shows no ST changes. Troponin is normal. Prescriptions will be refilled. Patient advised to follow- up on an outpatient basis. Faxed to [facility] so that patient may receive a urgent cardiac follow-up. Patient will be discharged at this time, return precautions given. - Differential Diagnosis Pulmonary edema, ACS, pneumonia Critical care attestation.: If time is entered above; I have spent that time in minutes in the direct care of this critically ill patient, excluding procedure time. ED Disposition Clinical Impression: CHF (congestive heart failure), Chest pain Disposition: - TO HOME OR SELFCARE Is pt being admited?: No Condition: Stable Instructions: Heart Failure, Self Care, [id number], Chest Pain (ED) Prescriptions: carvediloL [Coreg] 12.5 mg PO BID #60 tablet Furosemide [Lasix TAB] 40 mg PO BID #60 tablet Simvastatin 40 mg PO DAILY #30 tablet Lisinopril [Zestril TAB] 2.5 mg PO QDAY #30 tab Referrals: PRIMARY CARE, [Primary Care Provider] - 3-5 Days [facility] [Provider Group] - 3-5 Days [facility] [Outside] - 3-5 Days Time of Disposition: 22:44
[2020-05-15 23:21] VITALS: BP 122/85
== END 2020-05-15 23:19 | disposition home or self-care (01) ==
LOC: ED 14:24
DX: I11.0 Hypertensive heart disease with heart failure (principal); I50.9 Heart failure, unspecified; Z98.890 Other specified postprocedural states; Z79.899 Other long term (current) drug therapy
CPT/HCPCS: 36415; 71046; 80053; 83880; 84484; 85025; 93005; 99283

== ENCOUNTER 2020-06-13 16:13 | Emergency (ER) | payer SELFPAY ==
--- NOTE | 2020-06-13 16:31 | Event Note ---
ED Screening Note ED Screening Note: CC IOANA TODAY AT REST NO COVID EXP NO CP SOB WORSENING NO FEVER OR CHILLS/ABD PAIN/ DIARRHEA PT USES US PCP TO ER IN AMBULANCE PMH HLD BREAST CA HTN CHF RENAL CA- NO R KIDNEY MED REC UPDATED NO CIG/ETOH/DRUGS This initial assessment/diagnostic orders/clinical plan/treatment(s) is/are subject to change based on patients health status, clinical progression and re- assessment by fellow clinical providers in the ED. Further treatment and workup at subsequent clinical providers discretion. Patient/guardian urged not to elope from the ED as their condition may be serious if not clinically assessed and managed. Initial orders include: RO ACS
--- NOTE | 2020-06-13 16:59 | XRay Report ---
CHEST 2 VIEWS INDICATION / CLINICAL INFORMATION: SOB. COMPARISON: 05/15/2020 FINDINGS: SUPPORT DEVICES: None. HEART / MEDIASTINUM: No significant abnormality. LUNGS / PLEURA: No significant pulmonary or pleural abnormality. No pneumothorax. ADDITIONAL FINDINGS: No significant additional findings. IMPRESSION: 1. No acute findings. Signer Name: Hector Cruz MD Signed: 06/13/2020 4:55 PM Workstation Name: [id number] [email or web address] [id number]
[2020-06-13 17:13] LABS: Basophils % (Auto) 0.3 % (0.0-1.8); Eosinophils # (Auto) 0.1 K/mm3 (0.0-0.4); Eosinophils % (Auto) 1.2 % (0.0-4.3); Hematocrit 40.3 % (30.3-42.9); Hemoglobin 13.2 gm/dl (10.1-14.3); Lymphocytes # (Auto) 2.4 K/mm3 (1.2-5.4); Lymphocytes % (Auto) 38.3 % (13.4-35.0); Mean Corpuscular HGB Conc 33 % (30-34); Mean Corpuscular Volume 94 fl (79-97); Monocytes # (Auto) 0.4 K/mm3 (0.0-0.8); Monocytes % (Auto) 6.4 % (0.0-7.3); Platelet Count 302 K/mm3 (140-440); Red Blood Count 4.28 M/mm3 (3.65-5.03); Red Cell Distribution Width 13.7 % (13.2-15.2)
[2020-06-13 17:29] LABS: Partial Thromboplastin Time 28.1 Sec. (24.2-36.6)
[2020-06-13 17:34] LABS: Alanine Aminotransferase 8 units/L (7-56); Albumin 4.1 g/dL (3.9-5); BUN/Creatinine Ratio 20; Blood Urea Nitrogen 20 mg/dL (7-17); Calcium 9.7 mg/dL (8.4-10.2); Hemolysis Index 7
[2020-06-13 17:36] LABS: Creatine Kinase MB < 1.0 ng/mL (0.0-4.0)
[2020-06-13 22:23] LABS: Bilirubin,Urine NEG (Negative); Blood,Urine NEG (Negative); Color,Urine Yellow (Yellow); Protein,Urine <15 mg/dL mg/dL (Negative)
--- NOTE | 2020-06-13 23:17 | Emergency Department Report ---
ED General Adult HPI - General Chief complaint: Dyspnea/Respdistress Stated complaint: IOANA PUI?: Yes Time Seen by Provider: 06/13/20 16:27 Source: patient, RN notes reviewed, old records reviewed Mode of arrival: Ambulatory Limitations: No Limitations - History of Present Illness Initial comments: The patient was evaluated in the emergency department for symptoms described in the history of present illness. He/she was evaluated in the context of the global COVID-19 pandemic, which necessitated consideration that the patient might be at risk for infection with the virus that causes COVID-19. Institutional protocols and algorithms that pertain to the evaluation of patients at risk for COVID-19 are in a state of rapid change based on information released by regulatory bodies including the CDC and federal and state organizations. These policies and algorithms were followed during the patient's care in the emergency department. Please note that these policies, procedures and recommendations changed on a rapid basis. During the entire history and physical examination, I had on complete personal protective equipment. This is a 59-year-old female. Patient has a history of CHF, EF of 20%, hypertension, high cholesterol, noncompliance secondary to insurance reasons. She presents to the ER with a complaint of acute on chronic shortness of breath for 2 to 3 days. Patient endorses loss of taste and smell. She denies headache, neck pain, chest pain, abdominal pain, travel, surgery, DVT, pulmonary embolism risk factors. No fevers. She reports that she is compliant with her medications. She does not feel like she has had unintentional weight loss. She does not feel like she has unintentional swelling. She is not sure if she has been exposed to Covid in the past. -: Gradual, days(s), week(s) Severity scale (0 -10): 10 Consistency: constant Improves with: rest Worsens with: movement - Related Data Previous Rx's Medication Instructions Recorded Last Taken Type Aspirin [Aspirin BABY CHEW TAB] 81 mg PO DAILY #30 tab.chew 04/08/19 Unknown Rx Furosemide [Lasix TAB] 40 mg PO BID #60 tablet 05/15/20 Unknown Rx Lisinopril [Zestril TAB] 2.5 mg PO QDAY #30 tab 05/15/20 Unknown Rx Simvastatin 40 mg PO DAILY #30 tablet 05/15/20 Unknown Rx carvediloL [Coreg] 12.5 mg PO BID #60 tablet 05/15/20 Unknown Rx Allergies Allergy/AdvReac Type Severity Reaction Status Date / Time No Known Allergies Allergy Verified 01/02/14 21:11 ED Review of Systems ROS: Stated complaint: IOANA Other details as noted in HPI Constitutional: denies: fever Eyes: denies: eye discharge ENT: denies: congestion Respiratory: cough, shortness of breath, SOB with exertion, SOB at rest Cardiovascular: denies: chest pain, edema Gastrointestinal: denies: abdominal pain, hematemesis, melena, hematochezia Genitourinary: denies: dysuria Musculoskeletal: denies: back pain Skin: denies: lesions Neurological: weakness. denies: headache Hematological/Lymphatic: denies: easy bleeding ED Past Medical Hx - Past Medical History Previous Medical History?: Yes Hx Hypertension: Yes Hx CVA: Yes Hx Congestive Heart Failure: Yes Hx Diabetes: No Hx Asthma: No Hx COPD: No Hx HIV: No Additional medical history: Bilateral Breast CA, Right Kidney CA, left lung collapsed, broken ribs. MS - Surgical History Past Surgical History?: Yes Additional Surgical History: Bilateral mastectomy with reconstruction, bilateral lymph nodes removed, right kidney removed, cyst to throat removed as a child - Social History Smoking Status: Never Smoker Substance Use Type: None - Medications Home Medications: Home Medications Medication Instructions Recorded Confirmed Last Taken Type Aspirin [Aspirin BABY CHEW TAB] 81 mg PO DAILY #30 tab.chew 04/08/19 Unknown Rx Furosemide [Lasix TAB] 40 mg PO BID #60 tablet 05/15/20 Unknown Rx Lisinopril [Zestril TAB] 2.5 mg PO QDAY #30 tab 05/15/20 Unknown Rx Simvastatin 40 mg PO DAILY #30 tablet 05/15/20 Unknown Rx carvediloL [Coreg] 12.5 mg PO BID #60 tablet 05/15/20 Unknown Rx ED Physical Exam - General Limitations: No Limitations General appearance: alert, anxious - Head Head exam: Present: atraumatic, normocephalic - Eye Eye exam: Present: normal appearance, EOMI. Absent: nystagmus - ENT ENT exam: Present: normal exam, normal orophraynx, mucous membranes moist, normal external ear exam - Neck Neck exam: Present: normal inspection, full ROM. Absent: tenderness, meningismus - Respiratory Respiratory exam: Present: normal lung sounds bilaterally. Absent: respiratory distress, wheezes, rales, rhonchi, stridor - Cardiovascular Cardiovascular Exam: Present: regular rate, normal rhythm, normal heart sounds. Absent: bradycardia, tachycardia, irregular rhythm, systolic murmur, diastolic murmur, rubs, gallop - GI/Abdominal GI/Abdominal exam: Present: soft, normal bowel sounds. Absent: distended, tenderness, guarding, rebound, rigid, pulsatile mass - Extremities Exam Extremities exam: Present: normal inspection, full ROM, other (2+ pulses noted in the bilateral upper and lower extremities. There is no palpable cord. negative Homans sign. Muscular compartments are soft. The pelvis is stable.). Absent: pedal edema, calf tenderness - Back Exam Back exam: Present: normal inspection, full ROM. Absent: tenderness, CVA tenderness (R), CVA tenderness (L), paraspinal tenderness, vertebral tenderness - Neurological Exam Neurological exam: Present: alert, oriented X3, normal gait, other (No facial droop. Tongue midline. Extraocular movements intact bilaterally. Facial sensation intact to light touch in V1, V2, V3 distribution bilaterally. 5 and a 5 strength in 4 extremities. Sensation intact to light touch in 4 extremities.). Absent: motor sensory deficit - Psychiatric Psychiatric exam: Present: normal affect, normal mood - Skin Skin exam: Present: warm, dry, intact, normal color. Absent: rash ED Course Vital Signs 06/13/20 06/13/20 06/13/20 16:21 21:53 23:16 Temperature 98 F 97.8 F Pulse Rate 82 77 Respiratory 16 18 20 Rate Blood Pressure 136/99 126/94 O2 Sat by Pulse 99 95 100 Oximetry - Pulse Oximetry Interpretation Digit-Finger Initial Pulse Oximetry Readin O2 Sat by Pulse Oximetry: 99 Actions Taken: none ED Medical Decision Making - Lab Data Result diagrams: 06/13/20 16:53 06/13/20 16:53 Vital Signs 06/13/20 06/13/20 06/13/20 16:21 21:53 23:16 Temperature 98 F 97.8 F Pulse Rate 82 77 Respiratory 16 18 20 Rate Blood Pressure 136/99 126/94 Blood Pressure [Right] O2 Sat by Pulse 99 95 100 Oximetry 06/13/20 23:18 Temperature 98.1 F Pulse Rate 67 Respiratory 20 Rate Blood Pressure Blood Pressure 146/97 [Right] O2 Sat by Pulse 100 Oximetry Lab Results 06/13/20 06/13/20 06/13/20 Range/Units 16:53 16:53 16:53 WBC 6.2 (4.5-11.0) K/mm3 RBC 4.28 (3.65-5.03) M/mm3 Hgb 13.2 (10.1-14.3) gm/dl Hct 40.3 (30.3-42.9) % MCV 94 (79-97) fl MCH 31 (28-32) pg MCHC 33 (30-34) % RDW 13.7 (13.2-15.2) % Plt Count 302 (140-440) K/mm3 Lymph % (Auto) 38.3 H (13.4-35.0) % Coffee % (Auto) 6.4 (0.0-7.3) % Eos % (Auto) 1.2 (0.0-4.3) % Baso % (Auto) 0.3 (0.0-1.8) % Lymph # (Auto) 2.4 (1.2-5.4) K/mm3 Coffee # (Auto) 0.4 (0.0-0.8) K/mm3 Eos # (Auto) 0.1 (0.0-0.4) K/mm3 Baso # (Auto) 0.0 (0.0-0.1) K/mm3 Seg Neutrophils % 53.8 (40.0-70.0) % Seg Neutrophils # 3.3 (1.8-7.7) K/mm3 PT 13.1 (12.2-14.9) Sec. INR 1.00 (0.87-1.13) APTT 28.1 (24.2-36.6) Sec. Sodium 143 (137-145) mmol/L Potassium 3.6 (3.6-5.0) mmol/L Chloride 103.5 (98-107) mmol/L Carbon Dioxide 29 (22-30) mmol/L Anion Gap 14 mmol/L BUN 20 H (7-17) mg/dL Creatinine 1.0 (0.6-1.2) mg/dL Estimated GFR > 60 ml/min BUN/Creatinine Ratio 20 % Glucose 97 (65-100) mg/dL Calcium 9.7 (8.4-10.2) mg/dL Total Bilirubin 0.40 (0.1-1.2) mg/dL AST 13 (5-40) units/L ALT 8 (7-56) units/L Alkaline Phosphatase 108 (35-129) units/L Total Creatine Kinase 46 (30-135) units/L CK-MB (CK-2) < 1.0 (0.0-4.0) ng/mL CK-MB (CK-2) Rel Index 2.1 (0-4) Troponin T < 0.010 (0.00-0.029) ng/mL NT-Pro-B Natriuret Pep 5019 H (0-900) pg/mL Total Protein 7.4 (6.3-8.2) g/dL Albumin 4.1 (3.9-5) g/dL Albumin/Globulin Ratio 1.2 % Urine Color (Yellow) Urine Turbidity (Clear) Urine pH (5.0-7.0) Ur Specific [place] (1.003-1.030) Urine Protein (Negative) mg/dL Urine Glucose (UA) (Negative) mg/dL Urine Ketones (Negative) mg/dL Urine Blood (Negative) Urine Nitrite (Negative) Urine Bilirubin (Negative) Urine Urobilinogen (<2.0) mg/dL Ur Leukocyte Esterase (Negative) Urine WBC (Auto) (0.0-6.0) /HPF Urine RBC (Auto) (0.0-6.0) /HPF U Epithel Cells (Auto) (0-13.0) /HPF 06/13/20 06/13/20 Range/Units 20:10 22:07 WBC (4.5-11.0) K/mm3 RBC (3.65-5.03) M/mm3 Hgb (10.1-14.3) gm/dl Hct (30.3-42.9) % MCV (79-97) fl MCH (28-32) pg MCHC (30-34) % RDW (13.2-15.2) % Plt Count (140-440) K/mm3 Lymph % (Auto) (13.4-35.0) % Coffee % (Auto) (0.0-7.3) % Eos % (Auto) (0.0-4.3) % Baso % (Auto) (0.0-1.8) % Lymph # (Auto) (1.2-5.4) K/mm3 Coffee # (Auto) (0.0-0.8) K/mm3 Eos # (Auto) (0.0-0.4) K/mm3 Baso # (Auto) (0.0-0.1) K/mm3 Seg Neutrophils % (40.0-70.0) % Seg Neutrophils # (1.8-7.7) K/mm3 PT (12.2-14.9) Sec. INR (0.87-1.13) APTT (24.2-36.6) Sec. Sodium (137-145) mmol/L Potassium (3.6-5.0) mmol/L Chloride (98-107) mmol/L Carbon Dioxide (22-30) mmol/L Anion Gap mmol/L BUN (7-17) mg/dL Creatinine (0.6-1.2) mg/dL Estimated GFR ml/min BUN/Creatinine Ratio % Glucose (65-100) mg/dL Calcium (8.4-10.2) mg/dL Total Bilirubin (0.1-1.2) mg/dL AST (5-40) units/L ALT (7-56) units/L Alkaline Phosphatase (35-129) units/L Total Creatine Kinase (30-135) units/L CK-MB (CK-2) (0.0-4.0) ng/mL CK-MB (CK-2) Rel Index (0-4) Troponin T < 0.010 (0.00-0.029) ng/mL NT-Pro-B Natriuret Pep (0-900) pg/mL Total Protein (6.3-8.2) g/dL Albumin (3.9-5) g/dL Albumin/Globulin Ratio % Urine Color Yellow (Yellow) Urine Turbidity Clear (Clear) Urine pH 5.0 (5.0-7.0) Ur Specific [place] 1.016 (1.003-1.030) Urine Protein <15 mg/dl (Negative) mg/dL Urine Glucose (UA) Neg (Negative) mg/dL Urine Ketones Neg (Negative) mg/dL Urine Blood Neg (Negative) Urine Nitrite Neg (Negative) Urine Bilirubin Neg (Negative) Urine Urobilinogen 2.0 (<2.0) mg/dL Ur Leukocyte Esterase Neg (Negative) Urine WBC (Auto) 1.0 (0.0-6.0) /HPF Urine RBC (Auto) 1.0 (0.0-6.0) /HPF U Epithel Cells (Auto) < 1.0 (0-13.0) /HPF - EKG Data -: EKG Interpreted by Me EKG shows normal: sinus rhythm Rate: normal - EKG Data Interpretation: unchanged when compared t 06/13/20 23:21 Unchanged when compared to prior EKG from May 2020 Sinus rhythm, 65 bpm. Normal axis, QTC 432 ms. Poor R wave progression. Lateral T wave inversions. Abnormal EKG. Not a STEMI. - Radiology Data Radiology results: pending, report reviewed, image reviewed CHEST 2 VIEWS INDICATION / CLINICAL INFORMATION: SOB. COMPARISON: 05/15/2020 FINDINGS: SUPPORT DEVICES: None. HEART / MEDIASTINUM: No significant abnormality. LUNGS / PLEURA: No significant pulmonary or pleural abnormality. No pneumothorax. ADDITIONAL FINDINGS: No significant additional findings. IMPRESSION: 1. No acute findings. Signer Name: Hector Cruz MD Signed: 06/13/2020 3:55 PM Workstation Name: [id number] - Medical Decision Making Differential diagnosis, including but not limited to: COVID-19, chronic congestive heart failure Assessment and plan: 59-year-old female, not currently tachycardic, tachypneic or hypoxic, who denies DVT and pulmonary embolism risk factors, who is low risk by Wells criteria, with probable early COVID-19. Laboratory studies, x-ray of the chest, EKG were obtained prior to my personal evaluation of this patient. Troponins were also obtained prior to my personal evaluation of this patient. Patient denies chest pain. Her EKG is unchanged from prior. We appreciate that this patient does have some cardiovascular risk factors, and the patient has an elevated heart score. However, she did not present with a complaint of chest pain, but rather shortness of breath, and loss of smell and taste. Therefore, this is most likely symptomatic COVID-19. Patient given trial of ambulation, and did not desaturate below 93%. She appears quite comfortable. At this point in time, she does not meet criteria for inpatient admission or hospitalization. She is suitable for trial of outpatient management. I will refill her prescriptions. She can follow-up with an outpatient primary care doctor or safety trainer. We will also provide the patient with an affordable prescription card. Return precautions are reviewed. Patient also counseled to purchase [id number] pulse oximeter, to self monitor. Had on complete personal protective equipment during the entire patient encounter. Critical care attestation.: If time is entered above; I have spent that time in minutes in the direct care of this critically ill patient, excluding procedure time. ED Disposition Clinical Impression: Suspected 2019 novel coronavirus infection, Medication refill, History of CHF (congestive heart failure) Disposition: DC- TO HOME OR SELFCARE Is pt being admited?: No Does the pt Need Aspirin: No Condition: Good Instructions: COVID-19, Heart Failure, Diagnosis Additional Instructions: As we discussed, the patient most likely has novel coronavirus/COVID. the symptoms of COVID will typically persist 10 to 14 days. There is no cure at this time for COVID. Please make certain to self isolate and self quarantine, follow-up with an outpatient primary care doctor within the next 3 to 5 days, wash hands with soap and water frequently, thoroughly and often, patient may ta ke the prescribed medications as needed and directed. Advance diet and drink plenty of fluids as tolerated. Avoid interactions with the very elderly, very young, and those with chronic medical conditions. Return to the emergency room right away with new pain, worsening pain, migration of pain, projectile vomiting, change in mental status, confusion, inability to tolerate liquid feeds, new, worsened or different symptoms not present on the initial emergency room evaluation. Referrals: LILI GLASS MD [Staff Physician] - 3-5 Days JOSEPH MARCUM MD [Staff Physician] - 3-5 Days [facility] [Provider Group] - 3-5 Days Forms: Work/School Release Form(ED)
[2020-06-14 01:55] VITALS: BP 136/81
== END 2020-06-13 23:50 | disposition home or self-care (01) ==
LOC: ED 16:13
DX: I11.0 Hypertensive heart disease with heart failure (principal); I50.9 Heart failure, unspecified; Z98.890 Other specified postprocedural states; Z76.0 Encounter for issue of repeat prescription; Z86.73 Personal history of transient ischemic attack (TIA), and cerebral infarction without residual deficits; Z79.899 Other long term (current) drug therapy; Z20.822 Contact with and (suspected) exposure to COVID-19
CPT/HCPCS: 36415; 71046; 80053; 81001; 82550; 82553; 83880; 84484; 85025; 85610; 85730; 93005

== ENCOUNTER 2020-11-02 10:37 | Emergency (ER) | payer SELFPAY ==
[2020-11-02 11:14] LABS: Basophils # (Auto) 0.2 K/mm3 (0.0-0.1); Basophils % (Auto) 1.7 % (0.0-1.8); Eosinophils # (Auto) 0.1 K/mm3 (0.0-0.4); Eosinophils % (Auto) 0.8 % (0.0-4.3); Hematocrit 38.1 % (30.3-42.9); Lymphocytes # (Auto) 2.5 K/mm3 (1.2-5.4); Lymphocytes % (Auto) 27.3 % (13.4-35.0); Mean Corpuscular HGB Conc 34 % (30-34); Mean Corpuscular Volume 93 fl (79-97); Monocytes # (Auto) 0.5 K/mm3 (0.0-0.8); Monocytes % (Auto) 5.9 % (0.0-7.3); Platelet Count 385 K/mm3 (140-440); Red Blood Count 4.09 M/mm3 (3.65-5.03); Red Cell Distribution Width 13.5 % (13.2-15.2)
--- NOTE | 2020-11-02 11:51 | XRay Report ---
CHEST 2 VIEWS INDICATION / CLINICAL INFORMATION: shortness of breath. Chest pain. COMPARISON: 06/13/20 FINDINGS: SUPPORT DEVICES: None. HEART / MEDIASTINUM: No significant abnormality. LUNGS / PLEURA: No significant pulmonary or pleural abnormality. No pneumothorax. ADDITIONAL FINDINGS: Bilateral chest wall surgical clips are unchanged and are likely related to walker st surgery. IMPRESSION: 1. No acute findings. No change. Signer Name: Santana Keenan MD Signed: 11/02/2020 11:47 AM Workstation Name: [id number]
--- NOTE | 2020-11-02 11:57 | Emergency Department Report ---
ED Shortness of Breath HPI - General Chief Complaint: Dyspnea/Respdistress Stated Complaint: RT EYE PAIN HEADACHE BREATHING PROB Time Seen by Provider: 11/02/20 11:54 Source: patient Mode of arrival: Ambulatory Limitations: No Limitations - History of Present Illness Initial Comments: Patient is 60 years old female with history of hypertension and congestive heart failure. Patient presented to the ER complaining of shortness of breath on and off for the last 2-month. Patient stated that she have to use several pillows to sleep on. She denied any chest pain, cough, fever or chills. She also denied any nausea or vomiting. MD Complaint: shortness of breath -: days(s), month(s) Known History Of: congestive heart failure - Related Data Previous Rx's Medication Instructions Recorded Last Taken Type Albuterol Sulfate [Proair 90 mcg IH Q4HR PRN #2 aer.pow.ba 06/13/20 Unknown Rx Respiclick] Aspirin [Aspirin BABY CHEW TAB] 81 mg PO DAILY #30 tab.chew 06/13/20 Unknown Rx Furosemide [Lasix TAB] 40 mg PO BID #60 tablet 06/13/20 Unknown Rx Lisinopril [Zestril TAB] 2.5 mg PO QDAY #30 tab 06/13/20 Unknown Rx Simvastatin 40 mg PO DAILY #30 tablet 06/13/20 Unknown Rx carvediloL [Coreg] 12.5 mg PO BID #60 tablet 06/13/20 Unknown Rx Allergies Allergy/AdvReac Type Severity Reaction Status Date / Time No Known Allergies Allergy Verified 11/02/20 12:28 ED Review of Systems ROS: Stated complaint: RT EYE PAIN HEADACHE BREATHING PROB Other details as noted in HPI Comment: All other systems reviewed and negative Constitutional: denies: chills, fever Respiratory: orthopnea, shortness of breath, SOB with exertion, SOB at rest. denies: wheezing Cardiovascular: denies: chest pain, palpitations Gastrointestinal: denies: abdominal pain, nausea Neurological: denies: headache, weakness, numbness, paresthesias, confusion ED Past Medical Hx - Past Medical History Previous Medical History?: Yes Hx Hypertension: Yes Hx CVA: Yes Hx Congestive Heart Failure: Yes Hx Diabetes: No Hx Asthma: No Hx COPD: No Hx HIV: No Additional medical history: Bilateral Breast CA, Right Kidney CA, left lung collapsed, broken ribs. MS - Surgical History Past Surgical History?: Yes Additional Surgical History: Bilateral mastectomy with reconstruction, bilateral lymph nodes removed, right kidney removed, cyst to throat removed as a child - Social History Smoking Status: Never Smoker Substance Use Type: None - Medications Home Medications: Home Medications Medication Instructions Recorded Confirmed Last Taken Type Albuterol Sulfate [Proair 90 mcg IH Q4HR PRN #2 aer.pow.ba 06/13/20 Unknown Rx Respiclick] Aspirin [Aspirin BABY CHEW TAB] 81 mg PO DAILY #30 tab.chew 06/13/20 Unknown Rx Furosemide [Lasix TAB] 40 mg PO BID #60 tablet 06/13/20 Unknown Rx Lisinopril [Zestril TAB] 2.5 mg PO QDAY #30 tab 06/13/20 Unknown Rx Simvastatin 40 mg PO DAILY #30 tablet 06/13/20 Unknown Rx carvediloL [Coreg] 12.5 mg PO BID #60 tablet 06/13/20 Unknown Rx ED Physical Exam - General Limitations: No Limitations General appearance: alert, in no apparent distress - Head Head exam: Present: atraumatic, normocephalic, normal inspection - Eye Eye exam: Present: normal appearance, PERRL - ENT ENT exam: Present: normal exam, normal orophraynx, mucous membranes moist - Neck Neck exam: Present: normal inspection, full ROM. Absent: tenderness, meningismus - Respiratory Respiratory exam: Present: normal lung sounds bilaterally - Cardiovascular Cardiovascular Exam: Present: regular rate, normal rhythm, normal heart sounds - GI/Abdominal GI/Abdominal exam: Present: soft, normal bowel sounds. Absent: distended, tenderness, guarding, rebound, rigid, organomegaly, mass, bruit, pulsatile mass, hernia - Extremities Exam Extremities exam: Present: normal inspection, full ROM, normal capillary refill. Absent: pedal edema, calf tenderness - Back Exam Back exam: Present: normal inspection, full ROM. Absent: CVA tenderness (R), CVA tenderness (L) - Neurological Exam Neurological exam: Present: alert, oriented X3, CN II-XII intact - Psychiatric Psychiatric exam: Present: normal mood - Skin Skin exam: Present: warm, intact, normal color ED Course Vital Signs 11/02/20 11/02/20 11/02/20 10:50 12:02 12:05 Temperature 98.5 F Pulse Rate 87 97 H 80 Respiratory 18 17 Rate Blood Pressure 127/79 Blood Pressure 122/89 [Left] O2 Sat by Pulse 100 100 Oximetry 11/02/20 14:00 Temperature Pulse Rate 68 Respiratory 17 Rate Blood Pressure Blood Pressure 115/71 [Left] O2 Sat by Pulse 99 Oximetry ED Medical Decision Making - Lab Data Result diagrams: 11/02/20 10:52 11/02/20 14:05 - EKG Data -: EKG Interpreted by [place] EKG shows normal: sinus rhythm Rate: normal - EKG Data Interpretation: no acute changes - Radiology Data Radiology results: report reviewed - Medical Decision Making Patient is 60 years old female with history of hypertension and congestive heart failure. Patient presented to the ER complaining of shortness of breath on and off for the last 2-month. Patient stated that she have to use several pillows to sleep on. She denied any chest pain, cough, fever or chills. She also denied any nausea or vomiting. Patient also added that she is out of her Lasix for the last few weeks. His chest x-ray is unremarkable except for cardiomegaly. Labs reviewed and showed significantly elevated BNP. Patient received Lasix. Patient stated that she is feeling much better. Patient given prescription for Lasix and advised to follow-up with her primary care physician in the next 2 to 3 days and to return to the ER if she develop any new symptoms. Critical care attestation.: If time is entered above; I have spent that time in minutes in the direct care of this critically ill patient, excluding procedure time. ED Disposition Clinical Impression: Acute exacerbation of CHF (congestive heart failure) Disposition: TO HOME OR SELFCARE Is pt being admited?: No Condition: Stable Instructions: Heart Failure, Self Care, [id number] Referrals: PATRICIA STALLINGS MD [Primary Care Provider] - 3-5 Days MARTIN DAWN MD [Staff Physician] - 3-5 Days
[2020-11-02] MEDS ORDERED: FUROSEMIDE 40 MG/4 ML INJ IV ONE (12:30)
[2020-11-02 15:16] LABS: Alanine Aminotransferase 12 units/L (7-56); Albumin 4.3 g/dL (3.9-5); BUN/Creatinine Ratio 13; Blood Urea Nitrogen 14 mg/dL (7-17); Calcium 9.9 mg/dL (8.4-10.2); Hemolysis Index 8
[2020-11-02 15:19] LABS: Bilirubin,Direct < 0.2 mg/dL (0-0.2)
[2020-11-02 15:41] VITALS: BP 126/101
--- NOTE | 2020-11-04 09:44 | Electrocardiograph Report ---
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
== END 2020-11-02 15:41 | disposition home or self-care (01) ==
LOC: ED 10:37
DX: I11.0 Hypertensive heart disease with heart failure (principal); I50.9 Heart failure, unspecified; Z86.73 Personal history of transient ischemic attack (TIA), and cerebral infarction without residual deficits; Z98.890 Other specified postprocedural states; Z79.899 Other long term (current) drug therapy
CPT/HCPCS: 36415; 71046; 80048; 80076; 83880; 84484; 85025; 93005; 96374; 99284; J1940

== ENCOUNTER 2021-01-17 08:51 | Emergency (ER) | payer SELFPAY ==
--- NOTE | 2021-01-17 09:35 | Emergency Department Report ---
Minor Respiratory - HPI Chief Complaint: Dyspnea/Respdistress Stated Complaint: IOANA Time Seen by Provider: 01/17/21 09:33 Duration: 2 months Severity: mild Minor Respiratory: Yes Shortness of Breath, No Rhinorrhea, No Sore Throat, No Able to Tolerate Fluids, No Ear Pain, No Cough, No Sick Contacts, No Hemoptysis, No Chest Pain, No Fever Other History: This is a 60-year-old -F[place] female who presents to the emergency room with shortness of breath for 2 months intermittently. Patient states she was diagnosed with COVID-19 2 months ago and continue to feel short of breath with exertion. Patient states she was sent home and instructed to follow-up with the PCP but she was unable to because she had no insurance. Patient states symptoms started after she ran out of her medication. She denies chest pain, weakness, dizziness, fever, chills, cough, nausea, vomiting, or diarrhea. ED Review of Systems ROS: Stated complaint: IOANA Other details as noted in HPI Constitutional: denies: chills, fever Respiratory: SOB with exertion. denies: cough, shortness of breath, wheezing Cardiovascular: denies: chest pain, palpitations Gastrointestinal: denies: abdominal pain, nausea, diarrhea Musculoskeletal: denies: back pain, joint swelling, arthralgia Skin: denies: rash, lesions Neurological: denies: headache, weakness, paresthesias Psychiatric: denies: anxiety, depression ED Past Medical Hx - Past Medical History Previous Medical History?: Yes Hx Hypertension: Yes Hx CVA: Yes Hx Congestive Heart Failure: Yes Hx Diabetes: No Hx Asthma: No Hx COPD: No Hx HIV: No Additional medical history: Bilateral Breast CA, Right Kidney CA, left lung collapsed, broken ribs. MS - Surgical History Past Surgical History?: Yes Additional Surgical History: Bilateral mastectomy with reconstruction, bilateral lymph nodes removed, right kidney removed, cyst to throat removed as a child - Social History Smoking Status: Never Smoker Substance Use Type: None - Medications Home Medications: Home Medications Medication Instructions Recorded Confirmed Last Taken Type Albuterol Sulfate [Proair 90 mcg IH Q4HR PRN #2 aer.pow.ba 06/13/20 Unknown Rx Respiclick] Aspirin [Aspirin BABY CHEW TAB] 81 mg PO DAILY #30 tab.chew 06/13/20 Unknown Rx Simvastatin 40 mg PO DAILY #30 tablet 06/13/20 Unknown Rx Lisinopril [Zestril TAB] 2.5 mg PO QDAY #30 tab 11/02/20 Unknown Rx carvediloL [Coreg] 12.5 mg PO BID #60 tablet 11/02/20 Unknown Rx Furosemide [Lasix TAB] 40 mg PO BID #60 tablet 01/17/21 Unknown Rx Lisinopril [Zestril TAB] 2.5 mg PO QDAY #30 tab 01/17/21 Unknown Rx Simvastatin 40 mg PO DAILY #30 tablet 01/17/21 Unknown Rx carvediloL [Coreg] 12.5 mg PO BID #60 tablet 01/17/21 Unknown Rx Minor Respiratory Exam - Exam General: Vital signs noted. No distress. Alert and acting appropriately. HEENT: Yes Moist Mucous Membranes, No Pharyngeal Erythema, No Pharyngeal Exudates, No Rhinorrhea, No Conjuctival Injection, No Frontal Tenderness, No Maxillary Tenderness Ear: Neither TM Bulge, Neither TM Erythema, Neither EAC Pain, Neither EAC Discharge Neck: Yes Supple, No Adenopathy Lungs: Yes Good Air Exchange, No Wheezes, No Ronchi, No Stridor, No Cough, No Labored Respirations, No Retractions, No Use of Accessory Muscles, No Other Abnormal Lung Sounds Heart: Yes Regular, No Murmur Abdomen: Yes Normal Bowel Sounds, No Tenderness, No Peritoneal Signs Skin: No Rash, No Edema Neurologic: Alert and oriented, no deficits. Musculoskeletal: Unremarkable. ED Course Vital Signs 01/17/21 09:04 Temperature 98.7 F Pulse Rate 91 H Respiratory 20 Rate Blood Pressure 153/117 O2 Sat by Pulse 100 Oximetry ED Medical Decision Making - Lab Data Result diagrams: 01/17/21 10:36 01/17/21 10:36 Vital Signs 01/17/21 01/17/21 09:04 09:43 Temperature 98.7 F 97.4 F L Pulse Rate 91 H 76 Respiratory 20 18 Rate Blood Pressure 153/117 143/98 O2 Sat by Pulse 100 100 Oximetry Lab Results 01/17/21 01/17/21 Range/Units 10:36 10:36 WBC 7.0 (4.5-11.0) K/mm3 RBC 3.89 (3.65-5.03) M/mm3 Hgb 12.0 (10.1-14.3) gm/dl Hct 36.9 (30.3-42.9) % MCV 95 (79-97) fl MCH 31 (28-32) pg MCHC 32 (30-34) % RDW 15.2 (13.2-15.2) % Plt Count 373 (140-440) K/mm3 Lymph % (Auto) 33.2 (13.4-35.0) % Banner % (Auto) 7.1 (0.0-7.3) % Eos % (Auto) 0.6 (0.0-4.3) % Baso % (Auto) 1.1 (0.0-1.8) % Lymph # (Auto) 2.3 (1.2-5.4) K/mm3 Banner # (Auto) 0.5 (0.0-0.8) K/mm3 Eos # (Auto) 0.0 (0.0-0.4) K/mm3 Baso # (Auto) 0.1 (0.0-0.1) K/mm3 Seg Neutrophils % 58.0 (40.0-70.0) % Seg Neutrophils # 4.1 (1.8-7.7) K/mm3 Sodium 144 (137-145) mmol/L Potassium 4.4 (3.6-5.0) mmol/L Chloride 107.5 H (98-107) mmol/L Carbon Dioxide 27 (22-30) mmol/L Anion Gap 14 mmol/L BUN 11 (7-17) mg/dL Creatinine 0.9 (0.6-1.2) mg/dL Estimated GFR > 60 ml/min BUN/Creatinine Ratio 12 % Glucose 91 (65-100) mg/dL Calcium 9.8 (8.4-10.2) mg/dL Total Bilirubin 0.30 (0.1-1.2) mg/dL AST 19 (5-40) units/L ALT 18 (7-56) units/L Alkaline Phosphatase 89 (35-129) units/L NT-Pro-B Natriuret Pep 7580 H (0-900) pg/mL Total Protein 7.4 (6.3-8.2) g/dL Albumin 4.0 (3.9-5) g/dL Albumin/Globulin Ratio 1.2 % Vital Signs 01/17/21 01/17/21 09:04 09:43 Temperature 98.7 F 97.4 F L Pulse Rate 91 H 76 Respiratory 20 18 Rate Blood Pressure 153/117 143/98 O2 Sat by Pulse 100 100 Oximetry - EKG Data -: No EKG Interpreted by Me (EKG interpreted by attending) - Radiology Data Radiology results: report reviewed CHEST 2 VIEWS INDICATION / CLINICAL INFORMATION: Shortness of breath. COMPARISON: 11/02/2020 FINDINGS: SUPPORT DEVICES: None. HEART / MEDIASTINUM: No significant abnormality. LUNGS / PLEURA: No significant pulmonary or pleural abnormality. No pneumothorax. ADDITIONAL FINDINGS: No significant additional findings. IMPRESSION: 1. No acute findings. Signer Name: Nico Douglass MD Signed: 01/17/2021 10:23 AM Workstation Name: [id number] Transcribed By: HAILEY Dictated By: Nico Douglass MD Electronically Authenticated By: Nico Douglass MD Signed Date/Time: 01/17/21 1023 - Medical Decision Making 60 y.o. female that presents with dyspnea for 2 months. Past medical history of hypertension and congestive heart failure. Patient ran out of medication several weeks ago. She is currently is uninsured with no PCP follow-up. Vitals stable. Labs labs obtained and BNP elevated. All other labs unremarkable. Chest x-ray negative for acute cardiopulmonary findings. Heart score 2. EKG no overt evidence of STEMI. Due to work-up and exam there is low suspicion for acute coronary syndrome, pulmonary embolus, pneumothorax, or aortic dissection, or other emergent problems. This is an acute exacerbation of congestive heart failure. Given IV Lasix. Continue prescribed medication for CHF and hypertension. Referrals given for PCP follow-up. Discharged home stable. Given strict return instructions. Critical care attestation.: If time is entered above; I have spent that time in minutes in the direct care of this critically ill patient, excluding procedure time. ED Disposition Clinical Impression: Acute exacerbation of CHF (congestive heart failure) Qualifiers: Heart failure type: unspecified Qualified Code(s): I50.9 - Heart failure, unspecified Disposition: 01 HOME / SELF CARE / HOMELESS Is pt being admited?: No Condition: Stable Instructions: Heart Failure, Self Care, [id number] Prescriptions: carvediloL [Coreg] 12.5 mg PO BID #60 tablet Furosemide [Lasix TAB] 40 mg PO BID #60 tablet Simvastatin 40 mg PO DAILY #30 tablet Lisinopril [Zestril TAB] 2.5 mg PO QDAY #30 tab Referrals: JOSEPH MARCUM MD [Staff Physician] - 3-5 Days [facility] [Outside] - 3-5 Days [facility] [Provider Group] - 3-5 Days Time of Disposition: 12:45
--- NOTE | 2021-01-17 10:27 | XRay Report ---
CHEST 2 VIEWS INDICATION / CLINICAL INFORMATION: Shortness of breath. COMPARISON: 11/02/2020 FINDINGS: SUPPORT DEVICES: None. HEART / MEDIASTINUM: No significant abnormality. LUNGS / PLEURA: No significant pulmonary or pleural abnormality. No pneumothorax. ADDITIONAL FINDINGS: No significant additional findings. IMPRESSION: 1. No acute findings. Signer Name: Nico Douglass MD Signed: 01/17/2021 10:23 AM Workstation Name: [id number]
[2021-01-17 11:10] LABS: Basophils # (Auto) 0.1 K/mm3 (0.0-0.1); Basophils % (Auto) 1.1 % (0.0-1.8); Eosinophils % (Auto) 0.6 % (0.0-4.3); Hematocrit 36.9 % (30.3-42.9); Lymphocytes # (Auto) 2.3 K/mm3 (1.2-5.4); Lymphocytes % (Auto) 33.2 % (13.4-35.0); Mean Corpuscular HGB Conc 32 % (30-34); Mean Corpuscular Volume 95 fl (79-97); Monocytes # (Auto) 0.5 K/mm3 (0.0-0.8); Monocytes % (Auto) 7.1 % (0.0-7.3); Platelet Count 373 K/mm3 (140-440); Red Blood Count 3.89 M/mm3 (3.65-5.03); Red Cell Distribution Width 15.2 % (13.2-15.2)
[2021-01-17] MEDS ORDERED: FUROSEMIDE 40 MG/4 ML INJ IV ONE (11:40)
[2021-01-17 11:41] LABS: Alanine Aminotransferase 18 units/L (7-56); BUN/Creatinine Ratio 12; Blood Urea Nitrogen 11 mg/dL (7-17); Calcium 9.8 mg/dL (8.4-10.2); Hemolysis Index 3
[2021-01-17 13:30] VITALS: BP 131/93
== END 2021-01-17 13:30 | disposition home or self-care (01) ==
LOC: ED 08:51
DX: I11.0 Hypertensive heart disease with heart failure (principal); I50.9 Heart failure, unspecified; Z98.890 Other specified postprocedural states; Z79.899 Other long term (current) drug therapy
CPT/HCPCS: 36415; 71046; 80053; 83880; 85025; 96374; 99284; J1940

== ENCOUNTER 2021-03-07 10:19 | Emergency (ER) | payer SELFPAY ==
--- NOTE | 2021-03-07 10:50 | XRay Report ---
CHEST 2 VIEWS INDICATION: Weakness. COMPARISON: 01/17/2021 FINDINGS: Support devices: None. Heart: Within normal limits. Lungs/pleura: No acute air space or interstitial disease. No pneumothorax. Additional findings: Stable mild thoracic spondylosis. Surgical clips are noted in the right breast a nd right axilla. IMPRESSION: No acute findings. No significant change since 01/17/2021. Signer Name: Steve Wiley Jr, MD Signed: 03/07/2021 10:45 AM Workstation Name: [id number]
--- NOTE | 2021-03-07 10:54 | Emergency Department Report ---
ED General Adult HPI - General Chief complaint: Headache Stated complaint: HEADACHE PUI?: No Time Seen by Provider: 03/07/21 10:27 Source: patient Mode of arrival: Ambulatory Limitations: No Limitations - Related Data Previous Rx's Medication Instructions Recorded Last Taken Type Albuterol Sulfate [Proair 90 mcg IH Q4HR PRN #2 aer.pow.ba 06/13/20 Unknown Rx Respiclick] Aspirin [Aspirin BABY CHEW TAB] 81 mg PO DAILY #30 tab.chew 06/13/20 Unknown Rx Furosemide [Lasix TAB] 40 mg PO BID #60 tablet 01/17/21 Unknown Rx Lisinopril [Zestril TAB] 2.5 mg PO QDAY #30 tab 01/17/21 Unknown Rx Simvastatin 40 mg PO DAILY #30 tablet 01/17/21 Unknown Rx carvediloL [Coreg] 12.5 mg PO BID #60 tablet 01/17/21 Unknown Rx Sulfamethoxazole/Trimethoprim 1 each PO BID #10 tablet 03/07/21 Unknown Rx [Bactrim DS TAB] Allergies Allergy/AdvReac Type Severity Reaction Status Date / Time No Known Allergies Allergy Verified 03/07/21 10:25 ED Review of Systems ROS: Stated complaint: NO TASTE/HEADACHE/LT LEG PAIN Other details as noted in HPI Comment: All other systems reviewed and negative ED Past Medical Hx - Past Medical History Previous Medical History?: Yes Hx Hypertension: Yes Hx CVA: Yes Hx Congestive Heart Failure: Yes Hx Diabetes: No Hx Asthma: No Hx COPD: No Hx HIV: No Additional medical history: Bilateral Breast CA, Right Kidney CA, left lung collapsed, broken ribs. MS - Surgical History Past Surgical History?: Yes Additional Surgical History: Bilateral mastectomy with reconstruction, bilateral lymph nodes removed, right kidney removed, cyst to throat removed as a child - Family History Family history: no significant - Social History Smoking Status: Never Smoker Substance Use Type: None - Medications Home Medications: Home Medications Medication Instructions Recorded Confirmed Last Taken Type Albuterol Sulfate [Proair 90 mcg IH Q4HR PRN #2 aer.pow.ba 06/13/20 Unknown Rx Respiclick] Aspirin [Aspirin BABY CHEW TAB] 81 mg PO DAILY #30 tab.chew 06/13/20 Unknown Rx Furosemide [Lasix TAB] 40 mg PO BID #60 tablet 01/17/21 Unknown Rx Lisinopril [Zestril TAB] 2.5 mg PO QDAY #30 tab 01/17/21 Unknown Rx Simvastatin 40 mg PO DAILY #30 tablet 01/17/21 Unknown Rx carvediloL [Coreg] 12.5 mg PO BID #60 tablet 01/17/21 Unknown Rx Sulfamethoxazole/Trimethoprim 1 each PO BID #10 tablet 03/07/21 Unknown Rx [Bactrim DS TAB] ED Physical Exam - General Limitations: No Limitations General appearance: alert, in no apparent distress - Head Head exam: Present: atraumatic, normocephalic - Eye Eye exam: Present: normal appearance - ENT ENT exam: Present: mucous membranes moist - Neck Neck exam: Present: normal inspection - Respiratory Respiratory exam: Present: normal lung sounds bilaterally. Absent: respiratory distress - Cardiovascular Cardiovascular Exam: Present: regular rate, normal rhythm. Absent: systolic murmur, diastolic murmur, rubs, gallop - GI/Abdominal GI/Abdominal exam: Present: soft, normal bowel sounds - Extremities Exam Extremities exam: Present: normal inspection - Back Exam Back exam: Present: normal inspection - Neurological Exam Neurological exam: Present: alert, oriented X3 - Psychiatric Psychiatric exam: Present: normal affect, normal mood - Skin Skin exam: Present: warm, dry, intact, normal color. Absent: rash ED Course Vital Signs 03/07/21 03/07/21 10:25 13:38 Temperature 98.6 F 97.8 F Pulse Rate 50 L 55 L Respiratory 14 18 Rate Blood Pressure 134/98 159/105 [Left] O2 Sat by Pulse 100 100 Oximetry ED Medical Decision Making - Lab Data Result diagrams: 03/07/21 11:22 03/07/21 11:22 - Radiology Data Radiology results: report reviewed, image reviewed SEE REPORT - Medical Decision Making Lab Results 03/07/21 03/07/21 03/07/21 Range/Units 11:22 11:22 11:22 WBC 8.0 (4.5-11.0) K/mm3 RBC 4.00 (3.65-5.03) M/mm3 Hgb 11.8 (10.1-14.3) gm/dl Hct 37.5 (30.3-42.9) % MCV 94 (79-97) fl MCH 30 (28-32) pg MCHC 32 (30-34) % RDW 13.4 (13.2-15.2) % Plt Count 346 (140-440) K/mm3 Lymph % (Auto) 36.5 H (13.4-35.0) % Collin % (Auto) 7.2 (0.0-7.3) % Eos % (Auto) 0.8 (0.0-4.3) % Baso % (Auto) 1.1 (0.0-1.8) % Lymph # (Auto) 2.9 (1.2-5.4) K/mm3 Collin # (Auto) 0.6 (0.0-0.8) K/mm3 Eos # (Auto) 0.1 (0.0-0.4) K/mm3 Baso # (Auto) 0.1 (0.0-0.1) K/mm3 Seg Neutrophils % 54.4 (40.0-70.0) % Seg Neutrophils # 4.4 (1.8-7.7) K/mm3 Sodium 144 (137-145) mmol/L Potassium 4.0 (3.6-5.0) mmol/L Chloride 107.6 H (98-107) mmol/L Carbon Dioxide 26 (22-30) mmol/L Anion Gap 14 mmol/L BUN 17 (7-17) mg/dL Creatinine 1.0 (0.6-1.2) mg/dL Estimated GFR > 60 ml/min BUN/Creatinine Ratio 17 % Glucose 104 H (65-100) mg/dL Calcium 9.3 (8.4-10.2) mg/dL Phosphorus 3.40 (2.5-4.5) mg/dL Magnesium 2.40 H (1.7-2.3) mg/dL Total Bilirubin 0.40 (0.1-1.2) mg/dL AST 24 (5-40) units/L ALT 27 (7-56) units/L Alkaline Phosphatase 103 (35-129) units/L Total Creatine Kinase 78 (30-135) units/L Troponin T < 0.010 (0.00-0.029) ng/mL Total Protein 8.0 (6.3-8.2) g/dL Albumin 4.0 (3.9-5) g/dL Albumin/Globulin Ratio 1.0 % TSH (0.270-4.200) mlU/mL Urine Bilirubin (Negative) Urine RBC (Auto) (0.0-6.0) /HPF U Epithel Cells (Auto) (0-13.0) /HPF 03/07/21 03/07/21 Range/Units 11:22 Unknown WBC (4.5-11.0) K/mm3 RBC (3.65-5.03) M/mm3 Hgb (10.1-14.3) gm/dl Hct (30.3-42.9) % MCV (79-97) fl MCH (28-32) pg MCHC (30-34) % RDW (13.2-15.2) % Plt Count (140-440) K/mm3 Lymph % (Auto) (13.4-35.0) % Collin % (Auto) (0.0-7.3) % Eos % (Auto) (0.0-4.3) % Baso % (Auto) (0.0-1.8) % Lymph # (Auto) (1.2-5.4) K/mm3 Collin # (Auto) (0.0-0.8) K/mm3 Eos # (Auto) (0.0-0.4) K/mm3 Baso # (Auto) (0.0-0.1) K/mm3 Seg Neutrophils % (40.0-70.0) % Seg Neutrophils # (1.8-7.7) K/mm3 Sodium (137-145) mmol/L Potassium (3.6-5.0) mmol/L Chloride (98-107) mmol/L Carbon Dioxide (22-30) mmol/L Anion Gap mmol/L BUN (7-17) mg/dL Creatinine (0.6-1.2) mg/dL Estimated GFR ml/min BUN/Creatinine Ratio % Glucose (65-100) mg/dL Calcium (8.4-10.2) mg/dL Phosphorus (2.5-4.5) mg/dL Magnesium (1.7-2.3) mg/dL Total Bilirubin (0.1-1.2) mg/dL AST (5-40) units/L ALT (7-56) units/L Alkaline Phosphatase (35-129) units/L Total Creatine Kinase (30-135) units/L Troponin T (0.00-0.029) ng/mL Total Protein (6.3-8.2) g/dL Albumin (3.9-5) g/dL Albumin/Globulin Ratio % TSH 0.886 (0.270-4.200) mlU/mL Urine Bilirubin Neg (Negative) Urine RBC (Auto) 143.0 (0.0-6.0) /HPF U Epithel Cells (Auto) 97.0 H (0-13.0) /HPF Vital Signs 03/07/21 03/07/21 10:25 13:38 Temperature 98.6 F 97.8 F Pulse Rate 50 L 55 L Respiratory 14 18 Rate Blood Pressure 134/98 159/105 [Left] O2 Sat by Pulse 100 100 Oximetry - Differential Diagnosis RO INTRACRANIAL ETIO OF GONSALEZ/ INFECTION/HF Critical care attestation.: If time is entered above; I have spent that time in minutes in the direct care of this critically ill patient, excluding procedure time. ED Disposition Clinical Impression: UTI (urinary tract infection) Disposition: 01 HOME / SELF CARE / HOMELESS Is pt being admited?: No Does the pt Need Aspirin: No Condition: Stable Instructions: Urinary Tract Infection, Adult Additional Instructions: MEDS ORDERED TODAY FOLLOW UP WITH PCP SHI REFERRAL BELOW FOLLOW UP WITH NEURO MD FOR YOUR MS STAY WELL HYDRATED WITH WATER MOTRIN OR TYLENOL FOR PAIN Referrals: JOSEPH MARCUM MD [Staff Physician] - 3-5 Days Time of Disposition: 15:13
--- NOTE | 2021-03-07 11:12 | Cat Scan Report ---
CT head/brain wo con INDICATION / CLINICAL INFORMATION: 60 years Female; headache/weak/ms. TECHNIQUE: Routine CT head without contrast. All CT scans at this location are performed using CT dos e reduction for ALARA by means of automated exposure control. COMPARISON: 09/04/2018 FINDINGS: BRAIN / INTRACRANIAL CONTENTS: No acute hemorrhage, mass effect, midline shift, hydrocephalus, or acu te, large territorial infarct. Mild cerebral and cerebellar atrophy. There are moderate areas of decreased attenuation in the white matter of the cerebral hemispheres. Th is is most pronounced in the left parietal region. These are nonspecific findings and may be related to microangiopathy (hypertension, diabetes, atherosclerosis), given the patient's age. It might be di fficult to evaluate for small areas of ischemia without diffusion imaging by MRI. Demyelination such as multiple sclerosis could also be considered. CRANIOCERVICAL JUNCTION: No significant abnormality. ORBITS: No significant abnormality of visualized orbits. SINUSES / MASTOIDS: Visualized paranasal sinuses and mastoid air cells are essentially clear. ADDITIONAL FINDINGS: Atherosclerotic disease is seen in the anterior and posterior circulation. IMPRESSION: No acute intracranial process is appreciated. Volume loss. Chronic appearing white matter changes as described. No overwhelming change since 09/04/2018 exam. Signer Name: Steve Wiley Jr, MD Signed: 03/07/2021 11:08 AM Workstation Name: [id number]
[2021-03-07 12:09] LABS: Basophils # (Auto) 0.1 K/mm3 (0.0-0.1); Basophils % (Auto) 1.1 % (0.0-1.8); Eosinophils # (Auto) 0.1 K/mm3 (0.0-0.4); Eosinophils % (Auto) 0.8 % (0.0-4.3); Hematocrit 37.5 % (30.3-42.9); Hemoglobin 11.8 gm/dl (10.1-14.3); Lymphocytes # (Auto) 2.9 K/mm3 (1.2-5.4); Lymphocytes % (Auto) 36.5 % (13.4-35.0); Mean Corpuscular HGB Conc 32 % (30-34); Mean Corpuscular Volume 94 fl (79-97); Monocytes # (Auto) 0.6 K/mm3 (0.0-0.8); Monocytes % (Auto) 7.2 % (0.0-7.3); Platelet Count 346 K/mm3 (140-440); Red Cell Distribution Width 13.4 % (13.2-15.2)
[2021-03-07 13:24] LABS: Alanine Aminotransferase 27 units/L (7-56); BUN/Creatinine Ratio 17; Blood Urea Nitrogen 17 mg/dL (7-17); Calcium 9.3 mg/dL (8.4-10.2); Hemolysis Index 30
[2021-03-07] MEDS ORDERED: IBUPROFEN 800 MG TAB PO ONE (13:28)
[2021-03-07 14:43] LABS: Bacteria,Urine 1+ /HPF (Negative); Bilirubin,Urine NEG (Negative); Blood,Urine SM (Negative); Color,Urine Yellow (Yellow); Mucus,Urine FEW /HPF; Protein,Urine <15 mg/dL mg/dL (Negative); Urobilinogen,Urine < 2.0 mg/dL (<2.0)
[2021-03-07] MEDS ORDERED: LIDOCAINE-MPF (1%) 10 MG/1 ML VIAL 5 ML INFILTRATI ONE (15:10)
[2021-03-07] MEDS ORDERED: SODIUM CHLORIDE 0.9% 1000 ML 1,000 ML IV ONE (15:14)
[2021-03-07] MEDS ORDERED: cefTRIAXone/NS 1 GM/50 ML 1 GM/50 ML BAG IV ONE (15:15)
[2021-03-07 18:31] VITALS: BP 148/98
--- NOTE | 2021-03-08 09:14 | Electrocardiograph Report ---
[facility] Test Date: 2021-03-07 Test Time: 18:05:45 Pat Name: MELANIE MALDONADO Department: Room: Gender: F Dust Mop Maker: REZA ESTRELLAB: 1960 Requested By: GEORGI COTTRELL Order Number: [id number] Reading MD: Joaquim Hennessy Measurements Intervals [place] Rate: 82 P: MS: QRS: 12 QRSD: 81 T: QT: 418 QTc: 487 Interpretive Statements Atrial fibrillation Ventricular premature complex Nonspecific T abnormalities, lateral leads Compared to ECG 11/02/2020 12:05:17 T-wave abnormality now present Sinus rhythm no longer present Electronically Signed On 03-08-2021 9:14:39 EDT by Joaquim Hennessy
== END 2021-03-07 18:39 | disposition home or self-care (01) ==
LOC: ED 10:19
DX: N39.0 Urinary tract infection, site not specified (principal); R51.9 Headache, unspecified; I10 Essential (primary) hypertension; I63.9 Cerebral infarction, unspecified; I50.9 Heart failure, unspecified; Z98.82 Breast implant status
CPT/HCPCS: 36415; 70450; 71046; 80053; 81001; 82550; 83735; 84100; 84443; 84484; 85025; 93005; 96365; 96366; 99284; J0696; J7030

== ENCOUNTER 2021-04-29 13:05 | Emergency (ER) | payer SELFPAY ==
--- NOTE | 2021-04-29 14:04 | Emergency Department Report ---
ED Shortness of Breath HPI - General Chief Complaint: Dyspnea/Respdistress Stated Complaint: SOB/Medication refill Time Seen by Provider: 04/29/21 13:49 Source: EMS Mode of arrival: Stretcher Limitations: No Limitations - History of Present Illness Initial Comments: Patient is a 60-year-old female presents emergency room with complaints of a medication refill. Patient states she has been having shortness of breath for 2 months. She states that she has a history of CHF and hypertension and has not been taking her medications. She has associated dry cough and chest pain described as a dull ache which is also been going on for 2 months. she states she also has been experiencing orthopnea and paroxysmal nocturnal dyspnea. She denies any fever, vomiting, diarrhea, diaphoresis, leg swelling, calf pain, hemoptysis, pleuritic pain. No allergies to medications. She is a non-smoker. - Related Data Previous Rx's Medication Instructions Recorded Last Taken Type Albuterol Sulfate [Proair 90 mcg IH Q4HR PRN #2 aer.pow.ba 06/13/20 Unknown Rx Respiclick] Sulfamethoxazole/Trimethoprim 1 each PO BID #10 tablet 03/07/21 Unknown Rx [Bactrim DS TAB] Aspirin [Aspirin BABY CHEW TAB] 81 mg PO DAILY #30 tab.chew 04/29/21 Unknown Rx Furosemide [Lasix TAB] 40 mg PO BID #60 tablet 04/29/21 Unknown Rx Lisinopril [Zestril TAB] 2.5 mg PO QDAY #30 tab 04/29/21 Unknown Rx Simvastatin 40 mg PO DAILY #30 tablet 04/29/21 Unknown Rx carvediloL [Coreg] 12.5 mg PO BID #60 tablet 04/29/21 Unknown Rx Allergies Allergy/AdvReac Type Severity Reaction Status Date / Time No Known Allergies Allergy Verified 03/07/21 10:25 ED Review of Systems ROS: Stated complaint: SOB/Medication refill Other details as noted in HPI Comment: All other systems reviewed and negative ED Past Medical Hx - Past Medical History Hx Hypertension: Yes Hx CVA: Yes Hx Congestive Heart Failure: Yes Hx Diabetes: No Hx Asthma: No Hx COPD: No Hx HIV: No Additional medical history: Bilateral Breast CA, Right Kidney CA, left lung collapsed, broken ribs. MS - Surgical History Additional Surgical History: Bilateral mastectomy with reconstruction, bilateral lymph nodes removed, right kidney removed, cyst to throat removed as a child - Social History Smoking Status: Never Smoker Substance Use Type: None - Medications Home Medications: Home Medications Medication Instructions Recorded Confirmed Last Taken Type Albuterol Sulfate [Proair 90 mcg IH Q4HR PRN #2 aer.pow.ba 06/13/20 Unknown Rx Respiclick] Sulfamethoxazole/Trimethoprim 1 each PO BID #10 tablet 03/07/21 Unknown Rx [Bactrim DS TAB] Aspirin [Aspirin BABY CHEW TAB] 81 mg PO DAILY #30 tab.chew 04/29/21 Unknown Rx Furosemide [Lasix TAB] 40 mg PO BID #60 tablet 04/29/21 Unknown Rx Lisinopril [Zestril TAB] 2.5 mg PO QDAY #30 tab 04/29/21 Unknown Rx Simvastatin 40 mg PO DAILY #30 tablet 04/29/21 Unknown Rx carvediloL [Coreg] 12.5 mg PO BID #60 tablet 04/29/21 Unknown Rx ED Physical Exam - General Limitations: No Limitations General appearance: alert, in no apparent distress - Head Head exam: Present: atraumatic, normocephalic - Eye Eye exam: Present: normal appearance - ENT ENT exam: Present: mucous membranes moist - Respiratory Respiratory exam: Present: normal lung sounds bilaterally. Absent: respiratory distress, wheezes, rales, rhonchi, stridor, chest wall tenderness, accessory muscle use, decreased breath sounds, prolonged expiratory - Cardiovascular Cardiovascular Exam: Present: irregular rhythm - Neurological Exam Neurological exam: Present: alert, oriented X3 - Psychiatric Psychiatric exam: Present: normal affect, normal mood - Skin Skin exam: Present: warm, dry, intact ED Course Vital Signs 04/29/21 04/29/21 04/29/21 13:16 15:01 15:03 Temperature 98.7 F 98.6 F Pulse Rate 103 H 109 H Respiratory 16 20 Rate Blood Pressure Blood Pressure 150/110 139/106 [Right] O2 Sat by Pulse 100 98 98 Oximetry 04/29/21 04/29/21 18:49 19:49 Temperature Pulse Rate 104 H 93 H Respiratory 16 Rate Blood Pressure 153/121 Blood Pressure 144/88 [Right] O2 Sat by Pulse 99 Oximetry ED Medical Decision Making - Lab Data Result diagrams: 04/29/21 14:03 04/29/21 14:03 Lab Results 04/29/21 04/29/21 04/29/21 Range/Units 14:03 14:03 14:46 WBC 6.4 (4.5-11.0) K/mm3 RBC 3.90 (3.65-5.03) M/mm3 Hgb 11.5 (10.1-14.3) gm/dl Hct 37.1 (30.3-42.9) % MCV 95 (79-97) fl MCH 29 (28-32) pg MCHC 31 (30-34) % RDW 15.1 (13.2-15.2) % Plt Count 323 (140-440) K/mm3 Lymph % (Auto) 27.1 (13.4-35.0) % [place] % (Auto) 7.6 H (0.0-7.3) % Eos % (Auto) 0.1 (0.0-4.3) % Baso % (Auto) 1.1 (0.0-1.8) % Lymph # (Auto) 1.7 (1.2-5.4) K/mm3 [place] # (Auto) 0.5 (0.0-0.8) K/mm3 Eos # (Auto) 0.0 (0.0-0.4) K/mm3 Baso # (Auto) 0.1 (0.0-0.1) K/mm3 Seg Neutrophils % 64.1 (40.0-70.0) % Seg Neutrophils # 4.1 (1.8-7.7) K/mm3 D-Dimer 1843.67 H (0-234) ng/mlDDU Sodium 142 (137-145) mmol/L Potassium 4.1 (3.6-5.0) mmol/L Chloride 107.3 H (98-107) mmol/L Carbon Dioxide 20 L (22-30) mmol/L Anion Gap 19 mmol/L BUN 19 H (7-17) mg/dL Creatinine 1.2 (0.6-1.2) mg/dL Estimated GFR 56 ml/min BUN/Creatinine Ratio 16 % Glucose 98 (65-100) mg/dL Calcium 9.1 (8.4-10.2) mg/dL Total Bilirubin 0.50 (0.1-1.2) mg/dL AST 47 H (5-40) units/L ALT 68 H (7-56) units/L Alkaline Phosphatase 124 (35-129) units/L Troponin T < 0.010 (0.00-0.029) ng/mL NT-Pro-B Natriuret Pep 61230 H (0-900) pg/mL Total Protein 6.8 (6.3-8.2) g/dL Albumin 3.6 L (3.9-5) g/dL Albumin/Globulin Ratio 1.1 % Vital Signs 04/29/21 04/29/21 04/29/21 13:16 15:01 15:03 Temperature 98.7 F 98.6 F Pulse Rate 103 H 109 H Respiratory 16 20 Rate Blood Pressure Blood Pressure 150/110 139/106 [Right] O2 Sat by Pulse 100 98 98 Oximetry 04/29/21 04/29/21 18:49 19:49 Temperature Pulse Rate 104 H 93 H Respiratory 16 Rate Blood Pressure 153/121 Blood Pressure 144/88 [Right] O2 Sat by Pulse 99 Oximetry - EKG Data 04/29/21 19:27 Irregular rhythm with heart rate of 105 IN interval stable at [address]-T changes - Radiology Data Radiology results: report reviewed Ordering Physician: GRISEL SIMMONS Date of Service: 04/29/21 Procedure(s): XR chest routine 2V Accession Number(s): [id number] cc: GRISEL SIMMONS Fluoro Time In Minutes: CHEST 2 VIEWS INDICATION / CLINICAL INFORMATION: SOB, CP. COMPARISON: 03/07/2021 FINDINGS: SUPPORT DEVICES: None. HEART / MEDIASTINUM: Cardiomegaly with pulmonary venous hypertension LUNGS / PLEURA: No significant pulmonary or pleural abnormality. No pneumothorax. ADDITIONAL FINDINGS: No significant additional findings. IMPRESSION: 1. Cardiomegaly with pulmonary venous hypertension Signer Name: Santos Tavera MD Signed: 04/29/2021 2:28 PM Workstation Name: [id number] Transcribed By: TL Dictated By: Santos Tavera MD Electronically Authenticated By: Santos Tavera MD Signed Date/Time: 04/29/211427 DD/ 27 TD/TT: CTA CHEST WITH IV CONTRAST INDICATION: SOB, elevated d-dimer, hx of afib. TECHNIQUE: Axial CT images were obtained through the chest after injection of 100 cc Omni 350 IV contrast. 3 plane MIP reconstructions were produced. All CT scans at this location are performed using CT dose reduction for ALARA by means of automated exposure control. COMPARISON: None available. FINDINGS: PULMONARY ARTERIES: No pulmonary emboli. THORACIC AORTA: No acute abnormality. HEART: Moderate cardiomegaly CORONARY ARTERIES: No significant calcification. PLEURA: No pleural effusion. No pneumothorax. LYMPH NODES: No significant adenopathy. LUNGS: No acute air space or interstitial disease. ADDITIONAL FINDINGS: None. UPPER ABDOMEN: No acute findings. SKELETAL STRUCTURES: No significant osseous abnormality. IMPRESSION: 1. No CT evidence for pulmonary embolism. 2. No acute findings. Signer Name: Santos Tavera MD Signed: 04/29/2021 6:00 PM Workstation Name: [id number] - Medical Decision Making Patient is a 60-year-old female presents emergency room with complaints of a medication refill. Patient states she has been having shortness of breath for 2 months. She states that she has a history of CHF and hypertension and has not been taking her medications. She has associated dry cough and chest pain described as a dull ache which is also been going on for 2 months. she states she also has been experiencing orthopnea and paroxysmal nocturnal dyspnea. She denies any fever, vomiting, diarrhea, diaphoresis, leg swelling, calf pain, hemoptysis, pleuritic pain. No allergies to medications. She is a non-smoker. Patient has no hypoxia. EKG shows evidence of A. fib, no ST-T changes. Labs with elevated D-dimer and elevated BNP. troponin is normal. Chest x-ray 1. Cardiomegaly with pulmonary venous hypertension. discussed case with Dr. Mireles, ER attending who advised to give patient 60 mg IV Lasix and if CTA is normal patient can be discharged home with outpatient follow-up and given refill of her medications. CT angio chest 1. No CT evidence for pulmonary embolism. 2. No acute findings. Discussed all findings with patient. Patient given a refill of her medications. Advised patient please take medication as prescribed. Please watch your liquid intake, you should not be taking more than 2 L of day of any fluids. Please decrease your sodium intake. Follow-up with a primary care doctor. Follow-up with a career center advisor. Return to emergency room for any new or worsening symptoms. Critical care attestation.: If time is entered above; I have spent that time in minutes in the direct care of this critically ill patient, excluding procedure time. ED Disposition Clinical Impression: Non compliance with medical treatment, Medication refill Acute exacerbation of CHF (congestive heart failure) Qualifiers: Heart failure type: unspecified Qualified Code(s): I50.9 - Heart failure, unspecified Disposition: 01 HOME / SELF CARE / HOMELESS Is pt being admited?: No Does the pt Need Aspirin: No Condition: Stable Instructions: Living With Heart Failure Additional Instructions: please take medication as prescribed. Please watch your liquid intake, you should not be taking more than 2 L of day of any fluids. Please decrease your sodium intake. Follow-up with a primary care doctor. Follow-up with a career center advisor. Return to emergency room for any new or worsening symptoms. Prescriptions: Aspirin [Aspirin BABY CHEW TAB] 81 mg PO DAILY #30 tab.chew carvediloL [Coreg] 12.5 mg PO BID #60 tablet Furosemide [Lasix TAB] 40 mg PO BID #60 tablet Simvastatin 40 mg PO DAILY #30 tablet Lisinopril [Zestril TAB] 2.5 mg PO QDAY #30 tab Referrals: PRIMARY MD CHANDRAKANT [Primary Care Provider] - 3-5 Days JOSEPH MARCUM MD [Staff Physician] - 3-5 Days [facility] [Provider Group] - 3-5 Days LILI GLASS MD [Staff Physician] - 3-5 Days Time of Disposition: 19:31 Print Language: SWEDISH
--- NOTE | 2021-04-29 14:32 | XRay Report ---
CHEST 2 VIEWS INDICATION / CLINICAL INFORMATION: SOB, CP. COMPARISON: 03/07/2021 FINDINGS: SUPPORT DEVICES: None. HEART / MEDIASTINUM: Cardiomegaly with pulmonary venous hypertension LUNGS / PLEURA: No significant pulmonary or pleural abnormality. No pneumothorax. ADDITIONAL FINDINGS: No significant additional findings. IMPRESSION: 1. Cardiomegaly with pulmonary venous hypertension Signer Name: Santos Tavera MD Signed: 04/29/2021 2:28 PM Workstation Name: [id number]
[2021-04-29 15:18] LABS: Basophils # (Auto) 0.1 K/mm3 (0.0-0.1); Basophils % (Auto) 1.1 % (0.0-1.8); Eosinophils % (Auto) 0.1 % (0.0-4.3); Hematocrit 37.1 % (30.3-42.9); Hemoglobin 11.5 gm/dl (10.1-14.3); Lymphocytes # (Auto) 1.7 K/mm3 (1.2-5.4); Lymphocytes % (Auto) 27.1 % (13.4-35.0); Mean Corpuscular HGB Conc 31 % (30-34); Mean Corpuscular Volume 95 fl (79-97); Monocytes # (Auto) 0.5 K/mm3 (0.0-0.8); Monocytes % (Auto) 7.6 % (0.0-7.3); Platelet Count 323 K/mm3 (140-440); Red Cell Distribution Width 15.1 % (13.2-15.2)
[2021-04-29 15:44] LABS: Alanine Aminotransferase 68 units/L (7-56); Albumin 3.6 g/dL (3.9-5); BUN/Creatinine Ratio 16; Blood Urea Nitrogen 19 mg/dL (7-17); Calcium 9.1 mg/dL (8.4-10.2); Hemolysis Index 6
[2021-04-29] MEDS ORDERED: FUROSEMIDE 40 MG/4 ML INJ IV ONE (15:57)
[2021-04-29] MEDS ORDERED: carvediloL 6.25 MG TAB PO ONE (15:57)
[2021-04-29] MEDS ORDERED: FUROSEMIDE 20 MG/2 ML INJ IV ONE (16:47)
--- NOTE | 2021-04-29 19:04 | Cat Scan Report ---
CTA CHEST WITH IV CONTRAST INDICATION: SOB, elevated d-dimer, hx of afib. TECHNIQUE: Axial CT images were obtained through the chest after injection of 100 cc Omni 350 IV contrast. 3 ml ne MIP reconstructions were produced. All CT scans at this location are performed using CT dose reduc tion for ALARA by means of automated exposure control. COMPARISON: None available. FINDINGS: PULMONARY ARTERIES: No pulmonary emboli. THORACIC AORTA: No acute abnormality. HEART: Moderate cardiomegaly CORONARY ARTERIES: No significant calcification. PLEURA: No pleural effusion. No pneumothorax. LYMPH NODES: No significant adenopathy. LUNGS: No acute air space or interstitial disease. ADDITIONAL FINDINGS: None. UPPER ABDOMEN: No acute findings. SKELETAL STRUCTURES: No significant osseous abnormality. IMPRESSION: 1. No CT evidence for pulmonary embolism. 2. No acute findings. Signer Name: Santos Tavera MD Signed: 04/29/2021 7:00 PM Workstation Name: [id number]
[2021-04-29 19:50] VITALS: BP 144/88
--- NOTE | 2021-04-30 10:57 | Electrocardiograph Report ---
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
== END 2021-04-29 19:58 | disposition home or self-care (01) ==
LOC: ED 13:05
DX: Z91.19 Patient's noncompliance with other medical treatment and regimen (principal); Z76.0 Encounter for issue of repeat prescription; I11.0 Hypertensive heart disease with heart failure; I50.9 Heart failure, unspecified; Z86.73 Personal history of transient ischemic attack (TIA), and cerebral infarction without residual deficits; Z90.13 Acquired absence of bilateral breasts and nipples; Z98.890 Other specified postprocedural states
CPT/HCPCS: 36415; 71046; 71275; 80053; 83880; 84484; 85025; 85379; 93005; 96374; 99285; J1940; Q9967

== ENCOUNTER 2021-06-24 10:00 | Emergency (ER) | payer SELFPAY ==
--- NOTE | 2021-06-24 11:44 | Emergency Department Report ---
HPI - General Chief Complaint: Headache Time Seen by Provider: 06/24/21 11:25 - HPI HPI: MSE 1 The patient is a 60-year-old female present with a chief complaint of headache and shortness of breath. Patient states for the past 3 to 4 months she has had intermittent shortness of breath and dyspnea on exertion. Patient also states she has had intermittent headache for the same amount of time. When asked what made her come to the emergency department today given the length of her symptoms the patient states she felt as though her blood pressure was elevated. When asked why the patient states because she has been out of her blood pressure medication for approximately 4 months. Patient knowledges she has refilled her Lasix and has been taking that daily for at least the past month. Patient denies history of fever or cough. Patient denies nausea/vomiting. The patient states she has been vaccinated against Covid receiving her second shot several months ago ED Past Medical Hx - Past Medical History Hx Hypertension: Yes Hx CVA: Yes Hx Congestive Heart Failure: Yes Hx Renal Disease: Yes (Breast CA, renal CA) Additional medical history: Bilateral Breast CA, Right Kidney CA, left lung collapsed, broken ribs. MS - Surgical History Additional Surgical History: Bilateral mastectomy with reconstruction, bilateral lymph nodes removed, right kidney removed, cyst to throat removed as a child - Family History Family history: no significant - Social History Smoking Status: Former Smoker (None x6 months) Substance Use Type: None (Denies illicit drug use) - Medications Home Medications: Home Medications Medication Instructions Recorded Confirmed Last Taken Type Sulfamethoxazole/Trimethoprim 1 each PO BID #10 tablet 03/07/21 Unknown Rx [Bactrim DS TAB] Aspirin [Aspirin BABY CHEW TAB] 81 mg PO DAILY #30 tab.chew 04/29/21 Unknown Rx Furosemide [Lasix TAB] 40 mg PO BID #60 tablet 04/29/21 Unknown Rx Lisinopril [Zestril TAB] 2.5 mg PO QDAY #30 tab 04/29/21 Unknown Rx Albuterol Sulfate [Proair 90 mcg IH Q4HR PRN #2 aer.pow.ba 06/24/21 Unknown Rx Respiclick] Simvastatin 40 mg PO DAILY #30 tablet 06/24/21 Unknown Rx amLODIPine 5 mg PO DAILY #60 tab 06/24/21 Unknown Rx carvediloL [Coreg] 12.5 mg PO BID #60 tablet 06/24/21 Unknown Rx ED Review of Systems ROS: Stated complaint: SOB/HEADACHE Other details as noted in HPI Constitutional: denies: fever Eyes: denies: eye pain ENT: denies: throat pain Respiratory: shortness of breath, SOB with exertion. denies: cough Cardiovascular: dyspnea on exertion Endocrine: no symptoms reported Gastrointestinal: denies: abdominal pain, nausea Genitourinary: denies: dysuria Musculoskeletal: denies: back pain Neurological: headache Physical Exam - Physical Exam Vital Signs: Vital Signs 06/24/21 10:29 Temperature 98.9 F Pulse Rate 73 Respiratory 16 Rate Blood Pressure 143/92 [Left] O2 Sat by Pulse 100 Oximetry Physical Exam: GENERAL: The patient is well-developed well-nourished female sitting in chair not appearing to be in acute distress. [] HEENT: Normocephalic. Atraumatic. Extraocular motions are intact. Patient has moist mucous membranes. NECK: Supple. Trachea midline CHEST/LUNGS: Clear to auscultation. There is no respiratory distress noted. HEART/CARDIOVASCULAR: Regular. There is no tachycardia. There is no gallop rub or murmur. ABDOMEN: Abdomen is soft, nontender. Patient has normal bowel sounds. There is no abdominal distention. SKIN: There is no rash. There is no edema. There is no diaphoresis. NEURO: The patient is awake, alert, and oriented. The patient is cooperative. The patient has no focal neurologic deficits. The patient has normal speech. Cranial nerves II through XII grossly intact. GCS 15 MUSCULOSKELETAL: There is no evidence of acute injury. ED Course Vital Signs 06/24/21 10:29 Temperature 98.9 F Pulse Rate 73 Respiratory 16 Rate Blood Pressure 143/92 [Left] O2 Sat by Pulse 100 Oximetry ED Medical Decision Making - Lab Data Result diagrams: 06/24/21 12:42 06/24/21 12:42 Laboratory Tests 06/24/21 06/24/21 06/24/21 12:42 12:42 12:42 WBC 7.2 RBC 3.93 Hgb 12.3 Hct 36.9 MCV 94 MCH 31 MCHC 33 RDW 15.1 Plt Count 390 Lymph % (Auto) 32.8 [place] % (Auto) 6.9 Eos % (Auto) 0.6 Baso % (Auto) 1.4 Lymph # (Auto) 2.4 [place] # (Auto) 0.5 Eos # (Auto) 0.0 Baso # (Auto) 0.1 Seg Neutrophils % 58.3 Seg Neutrophils # 4.2 D-Dimer 524.89 H Sodium 138 Potassium 4.5 Chloride 102.3 Carbon Dioxide 23 Anion Gap 17 BUN 20 H Creatinine 1.0 Estimated GFR > 60 BUN/Creatinine Ratio 20 Glucose 83 Calcium 9.7 Total Creatine Kinase 53 CK-MB (CK-2) 1.7 CK-MB (CK-2) Rel Index 3.2 Troponin T < 0.010 NT-Pro-B Natriuret Pep 7720 H - EKG Data -: EKG Interpreted by Me EKG shows normal: sinus rhythm Rate: normal - EKG Data When compared to previous EKG there are: previous EKG unavailable Interpretation: nonspecific ST-T wave festus (T wave inversion in leads II, III, aVF and V6) - Radiology Data Radiology results: report reviewed (Chest x-ray), image reviewed (Chest x-ray) interpreted by me: Chest x-ray-no definite focal infiltrates, no pneumothorax [address] [address] XRay Report Signed Patient: MELANIE MALDONADO MR#: [id number] : 1960 Acct:[id number] Age/Sex: 60 / F ADM Date: 06/24/21 Loc: ED Attending Dr: Ordering Physician: DI GALEANO MD Date of Service: 06/24/21 Procedure(s): XR chest routine 2V Accession Number(s): [id number] cc: DI GALEANO MD Fluoro Time In Minutes: CHEST 2 VIEWS INDICATION: SOB. COMPARISON: 04/29/2021. FINDINGS: Support devices: None. Heart: Stable cardiomegaly. Lungs/Pleura: No acute air space or interstitial disease. No significant pleural effusion. IMPRESSION: Stable cardiomegaly. Signer Name: Christ Duran MD Signed: 06/24/2021 12:09 PM Workstation Name: [id number] Transcribed By: ES Dictated By: Christ Duran MD Electronically Authenticated By: Christ Duran MD Signed Date/Time: 06/24/21 1209 DD/ 1208 TD/TT: Print Cancel - Differential Diagnosis MS, CHF exacerbation, intracranial mass, ICH, pneumonia, bronchitis Critical care attestation.: If time is entered above; I have spent that time in minutes in the direct care of this critically ill patient, excluding procedure time. ED Disposition Clinical Impression: Hypertension, CHF (congestive heart failure), Medication refill Disposition: HOME / SELF CARE / HOMELESS Is pt being admited?: No Does the pt Need Aspirin: No Condition: Stable Instructions: Heart Failure Exacerbation, Hypertension, Adult, Hypertension (ED) Additional Instructions: Return to the emergency department should you develop worsening symptoms, inability to tolerate food or liquids, high fever or any other concerns Prescriptions: amLODIPine 5 mg PO DAILY #60 tab carvediloL [Coreg] 12.5 mg PO BID #60 tablet Albuterol Sulfate [Proair Respiclick] 90 mcg IH Q4HR PRN #2 aer.pow.ba PRN Reason: Wheezing Simvastatin 40 mg PO DAILY #30 tablet Referrals: PRIMARY CARE, [Primary Care Provider] - 3-5 Days [facility] [Provider Group] - 3-5 Days
--- NOTE | 2021-06-24 12:14 | XRay Report ---
CHEST 2 VIEWS INDICATION: SOB. COMPARISON: 04/29/2021. FINDINGS: Support devices: None. Heart: Stable cardiomegaly. Lungs/Pleura: No acute air space or interstitial disease. No significant pleural effusion. IMPRESSION: Stable cardiomegaly. Signer Name: Christ Duran MD Signed: 06/24/2021 12:09 PM Workstation Name: [id number]
[2021-06-24 13:26] LABS: Basophils # (Auto) 0.1 K/mm3 (0.0-0.1); Basophils % (Auto) 1.4 % (0.0-1.8); Eosinophils % (Auto) 0.6 % (0.0-4.3); Hematocrit 36.9 % (30.3-42.9); Hemoglobin 12.3 gm/dl (10.1-14.3); Lymphocytes # (Auto) 2.4 K/mm3 (1.2-5.4); Lymphocytes % (Auto) 32.8 % (13.4-35.0); Mean Corpuscular HGB Conc 33 % (30-34); Mean Corpuscular Volume 94 fl (79-97); Monocytes # (Auto) 0.5 K/mm3 (0.0-0.8); Monocytes % (Auto) 6.9 % (0.0-7.3); Platelet Count 390 K/mm3 (140-440); Red Blood Count 3.93 M/mm3 (3.65-5.03); Red Cell Distribution Width 15.1 % (13.2-15.2)
[2021-06-24 13:43] LABS: Creatine Kinase MB 1.7 ng/mL (0.0-4.0)
[2021-06-24 13:46] LABS: BUN/Creatinine Ratio 20; Blood Urea Nitrogen 20 mg/dL (7-17); Calcium 9.7 mg/dL (8.4-10.2); Hemolysis Index 19
--- NOTE | 2021-06-24 14:42 | Cat Scan Report ---
CT HEAD WITHOUT CONTRAST INDICATION / CLINICAL INFORMATION: Headache. TECHNIQUE: All CT scans at this location are performed using CT dose reduction for ALARA by means of automated e xposure control. COMPARISON: Head CT 03/07/2021 FINDINGS: HEMORRHAGE: None. EXTRA-AXIAL SPACES: Normal in size and morphology for the patient's age. VENTRICULAR SYSTEM: Normal in size and morphology for the patient's age. CEREBRAL PARENCHYMA: Moderate periventricular and deep white matter hypoattenuation again noted wing cteristic for microangiopathy most pronounced within the left parietal centrum semiovale region, unch anged. No significant abnormality. No acute territorial infarct. MIDLINE SHIFT OR HERNIATION: None. CEREBELLUM / BRAINSTEM: No significant abnormality. ORBITS: Normal as visualized. SOFT TISSUES of HEAD: No significant abnormality. CALVARIUM: No significant abnormality. PARANASAL SINUSES / MASTOID AIR CELLS: Normal as visualized. ADDITIONAL FINDINGS: None. IMPRESSION: 1. No acute intracranial abnormality. 2. Chronic moderate microangiopathy. Signer Name: Santos Tavera MD Signed: 06/24/2021 2:38 PM Workstation Name: [id number]
--- NOTE | 2021-06-24 15:32 | Cat Scan Report ---
CTA CHEST WITH CONTRAST INDICATION / CLINICAL INFORMATION: Shortness of breath omnipaque 350 100ml. TECHNIQUE: Axial CT images were obtained through the chest after injection of IV contrast. 3 plane IL P and/or 3D reconstructions were produced. All CT scans at this location are performed using CT dose reduction for ALARA by means of automated exposure control. COMPARISON: CTA chest 04/29/2021 FINDINGS: PULMONARY EMBOLUS: None. THORACIC AORTA: No significant abnormality. HEART: Stable moderate cardiomegaly CORONARY ARTERY CALCIFICATION: Present -- Mild. MEDIASTINUM / [place]: No significant abnormality. PLEURA: No pleural effusion. No pneumothorax. LUNGS: No acute air space or interstitial disease. ADDITIONAL FINDINGS: None. UPPER ABDOMEN: No acute findings. Right nephrectomy. SKELETAL STRUCTURES: Old healed right rib fracture deformities. IMPRESSION: 1. No CT evidence for pulmonary embolism. 2. No acute findings. Signer Name: Satnos Tavera MD Signed: 06/24/2021 3:28 PM Workstation Name: [id number]
[2021-06-24 16:56] VITALS: BP 154/105
--- NOTE | 2021-06-27 17:20 | Electrocardiograph Report ---
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
== END 2021-06-24 16:56 | disposition home or self-care (01) ==
LOC: ED 10:00
DX: I11.0 Hypertensive heart disease with heart failure (principal); I50.9 Heart failure, unspecified; Z76.0 Encounter for issue of repeat prescription; R51.9 Headache, unspecified; Z98.890 Other specified postprocedural states; Z87.891 Personal history of nicotine dependence
CPT/HCPCS: 36415; 70450; 71046; 71275; 80048; 82550; 82553; 83880; 84484; 85025; 85379; 93005; 93010; 99284; Q9967